=== PATIENT | male | born 1940 | race Caucasian/White ===

== ENCOUNTER 2016-12-21 13:45 | Inpatient (IN) | payer MEDICARE, OTHER ==
[2016-12-21 14:28] LABS: Hematocrit 14 % (42-52); Mean Corpuscular HGB Conc 32 g/dl (31-36); Mean Corpuscular Hemoglobin 31 pg (27-31); Mean Corpuscular Volume 96 fL (80-94); Mean Platelet Volume 8 um3 (7.4-10.4); Red Blood Count 1.43 10^6/ul (4.0-5.4); Red Cell Distribution Width 15 % (10.5-15); White Blood Count 12.5 10^3/ul (3.5-10.8)
[2016-12-21 14:30] LABS: Comments Flag Yes
[2016-12-21 14:36] LABS: Add Diff/Slide Review? Slide Review Added; Hemoglobin 4.4 g/dl (14.0-18.0)
[2016-12-21] MEDS ORDERED: NS 0.9% 1000 ML* 1,000 ML IV ONE (14:49)
[2016-12-21 15:08] LABS: TSH (Thyroid Stimulating Horm) 4.69 mcIU/mL (0.34-5.60)
[2016-12-21 15:09] LABS: Albumin 3.3 g/dL (3.2-5.2); BUN/Creatinine Ratio 24.1 (8-20); Calcium 8.2 mg/dL (8.6-10.3); EGFR African American 116.2 (>60); EGFR Non-African American 90.3 (>60); Globulin 2.1 g/dL (2-4); Potassium 4.3 mmol/L (3.5-5.0); Total Bilirubin 0.3 mg/dL (0.2-1.0); Total Protein 5.4 g/dL (6.4-8.9)
[2016-12-21 15:12] LABS: Troponin I 0.03 ng/mL (<0.04)
[2016-12-21] MEDS ORDERED: Pantoprazole IV* 40 MG IV ONE (16:20)
[2016-12-21 16:55] LABS: Magnesium 1.9 mg/dL (1.9-2.7)
[2016-12-21] MEDS: Pantoprazole IV* 80 MG in NS 0.9% 250 ML* 250 ML IVPB SCH (17:15)
--- NOTE | 2016-12-21 17:15 | CONS ---
GASTROENTEROLOGY CONSULT: DATE: 12/21/16 CONSULTING PHYSICIANS: Feliz Lr MD, ER; Lawrence Lala DO, [place]. * REASON FOR CONSULTATION: Hemoglobin 4.4 with history of dark stools for 4 days and then dark red blood yesterday HISTORY: This 76-year-old man with the history of GI bleeding from ulcers in winter 2014 came to the emergency room feeling weak and having seen blood in the stool over the last several days. His assists in the history, but it is still rather vague. Apparently, he has been in [place] all winter and had no trouble whatsoever and did not see any black stools at any time. At some point in 2015 he stopped taking pantoprazole. He arrived back here in [facility], 12/02/16, and was fine and had a routine 6-month check with Dr Lala on 12/11/16, at which time his hemoglobin was 12.3, MCV 95. His stools turned dark and he felt weak and dizzy and a followup hemoglobin, , was 8.9. There was no abdominal pain or dyspepsia or emesis. An expedited referral was made to our office and he has an appointment on 12/22/16 , but in the meantime, he felt weaker and the stool, rather than just being dark , overtly was dark red and he came to the emergency room fainting for the first time as he got into the car. Here his hemoglobin is 4.4, MCV 96, platelets 200. He was diagnosed with peptic ulcer disease, having presented with GI bleeding in [place], September 2014. He had been taking lots of ibuprofen at the time and he was sent home on pantoprazole. He did not resume taking ibuprofen and does not recognize any of the familiar NSAIDS. He does state he has arthritis, but has not taken anything for it, referencing that he did not want to have it affect his blood pressure. Dr. Lala restarted pantoprazole 3 days ago. 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 He presented to [place] and was helicoptered to [place] where after 2 days, they elected not to operate. PAST MEDICAL HISTORY: 1. Smoking - he quit 45 years ago. 2. Prostate cancer - status post surgery. 3. Aortic aneurysm dissection - managed medically (no aneurysm on a 08/02/13 CT abd done to w/u prostate cancer) His vascular consult was at [facility] after hel[facility]ter transfer Apr 2016 4. Hypertension. 5. Arthritis - consult with Dr. Gandara in March of 2016. 6. s/p Bilateral Knee Replacements MEDICATIONS: HCTZ 25, labetolol 200 mg (? schedule), ASA 81mg SOCIAL HISTORY: He is and a retired avionics systems engineer. He goes to [place] every winter. A health review from 10 years ago in our office listed a case of beer a week. Family History - father CAD REVIEW OF SYSTEMS: No history of GA, palpitations, syncope, CVA, neurologic deficits, seizures, hepatitis, jaundice, or recent falls or fractures. He has had colonoscopies at [place] by Dr Berkowitz with a tubular adenoma in 2006 and normal to cecum in 2014. PHYSICAL EXAMINATION: He is a slightly pale man lying back at 30 degrees in no distress. He is really in no respiratory distress and looks surprisingly fit. He even with his 's help is a very vague historian. Often a question results in the two of them discussing a series of different (though somewhat related) questions and ultimately they do not decide on the answer and the original question remains unanswered. Very circumscribed questions work best wtih repetition. HEENT exam shows no icterus. He has no adenopathy. His lungs are clear and heart sounds are regular. The abdomen is mildly rounded and without any scars or masses. Rectal: Deferred. Extremities show no edema. There is no deformity. Neurologic is nonfocal with no overt deficits. DIAGNOSTIC STUDIES/LAB DATA: Hemoglobin 4.4, MCV 96, platelets 200. IMPRESSION: This 76-year-old man with a history of abdominal aortic aneurysm dissection and prior peptic ulcer disease presents with an accelerated subacute bleed. It is notable he has not had any pain or vomited with this illness. Although he had black stools and then progressed to maroon stools, reassuringly has not had a bowel movement in the last 24 hours. Bleeding may have stopped, but clearly it has been significant. He is going to be admitted with 2 IVs, transfused, and be on a Protonix drip. Although the lack of NSAID exposure other than a baby aspirin appears secure after going through many different trade names, he and his are clearly not very medically informed and that still remains a possibility, especially as he says he has arthritis and has had a rheumatologic consult in the last year. Still some patients are very sensitive to even small doses of unopposed ASA. At the moment despite the hemoglobin of 4.4, he appears stable here in the ER and the first step is hemoglobin judaism and then EGD. [id number]/[facility] #: [id number] [facility]
--- NOTE | 2016-12-21 17:57 | HP ---
HISTORY AND PHYSICAL: DATE OF ADMISSION: 12/21/16 PRIMARY CARE PROVIDER: Dr. Lawrence Lala. ATTENDING PHYSICIAN: Dr. Omi Padilla*(dictated by Sherri Amado NP). CHIEF COMPLAINT: Fatigue, dizziness, and dark tarry stools for 4 days. HISTORY OF PRESENT ILLNESS: Mr. Duron is a 76-year-old male with past medical history significant for hypertension, prostate cancer, history of gastric ulcers, and aortic dissection, who presents to the emergency room with complaints of 4 days of dark tarry stools. The patient states that he had lab work drawn before a physical with his primary care provider on December 11. At that time, his hemoglobin and hematocrit were 12.3 and 38. The patient states that he saw his primary care provider on December 18, at which time he reported feeling fatigued, dizzy, and having 3 days of dark tarry stools. The patient reports that then his stools had more what appeared to be clumps of dark blood in them. The patient's primary care provider ordered an H and H and that was 8.9 and 27. At that time, the patient's hydrochlorothiazide was stopped as the patient felt that his blood pressures were lower than his normal, and the patient was restarted on pantoprazole 40 mg oral daily. The patient states he also had an episode of falling a few days prior due to his dizziness. At that time, he had no loss of consciousness. The patient reports that his last bowel movement was yesterday at 2 p.m. and it was a tarry color. The patient continued to not feel well and called his primary care provider, who recommended he present to the emergency room for further evaluation of his symptoms. According to the patient's , when they got in the car, he passed out for approximately 1 minute. The patient denies any fever, chills, chest pain, edema, abdominal pain. He reports recently having a cold, shortness of breath, diarrhea, and nausea. Based off of concern, the patient and his presented to the emergency room for further evaluation of his symptoms. While in the emergency room, the patient had labs that were significant for a hemoglobin of 4.4 and hematocrit of 14. He had a chemistry significant for sodium of 130 and chloride of 96. The patient also had an elevated lactic acid of 3.7. Hospitalists were asked to evaluate the patient for admission. The patient denies any recent NSAID use such as naproxen, ibuprofen, Motrin, or Aleve. PAST MEDICAL HISTORY: 1. Aortic dissection, medically treated. 2. Hypertension. 3. Prostate carcinoma. 4. Gastric ulcers, for which he was hospitalized 2 years ago with a GI bleed. PAST SURGICAL HISTORY: 1. Status post prostatectomy. 2. Status post left knee replacement. 3. Status post right total knee replacement. MEDICATIONS: Include: 1. Pantoprazole 40 mg oral daily. 2. Labetalol 200 mg oral 3 times daily. 3. Multivitamin 1 tablet oral daily. 4. Aspirin 81 mg oral daily. 5. Hydrochlorothiazide 25 mg oral daily, the patient stopped taking this on December 18 per direction from his primary care provider. FAMILY HISTORY: The patient's father had a history of coronary artery disease. The patient denies any family history of diabetes mellitus or cancer. SOCIAL HISTORY: The patient reports quitting smoking approximately 45 years ago. Prior to that, he smoked for 6 years, half a pack a day. The patient reports drinking alcohol 5 days a week and drinking 1 to 3 drinks during those days. The patient denies any recreational drug use. The patient is a retired facilities maintenance engineer. His , Madison Duron, will be his surrogate decision maker in the event he is unable to make decisions for himself. REVIEW OF SYSTEMS: I performed a 14-point review of systems. All the pertinent positives and negatives are mentioned in the history of present illness. The remaining review of systems are negative. PHYSICAL EXAMINATION GENERAL APPEARANCE: The patient is alert, pleasant, appears to be in no acute distress. VITAL SIGNS: Temperature 97.4, heart rate 70, respiratory rate 20, O2 sat 100% on room air, blood pressure 114/65. HEENT: Normocephalic, atraumatic. Pupils are equal and reactive to light. Extraocular movements are intact. RESPIRATORY: There is no accessory muscle use and the lungs are clear to auscultation bilaterally. CARDIOVASCULAR: Regular rate and rhythm. S1, S2 present. There are no murmurs , rubs, or gallops heard. ABDOMEN: Soft, nontender, nondistended. There are bowel sounds present x4. MUSCULOSKELETAL: There is no clubbing or cyanosis noted. The patient exhibits good strength in all extremities. SKIN: There are no rashes or abnormalities seen. NEUROLOGICAL: Cranial nerves II through XII are grossly intact. The patient is alert and oriented x3. PSYCHOLOGICAL: The patient is calm and cooperative. DIAGNOSTIC STUDIES/LABORATORY DATA: Sodium 130, potassium 4.3, chloride 96, CO2 25, BUN 20, creatinine 0.83, glucose 123, lactic acid 3.7. Troponin 0.03. TSH 4.69. White blood cell count 12.5, hemoglobin 4.4, hematocrit 14, platelet count 190. EKG shows a sinus rhythm with a rate of 65 and no acute signs of ischemia. There are no previous EKGs for comparison. IMPRESSION: Mr. Duron is a 76-year-old male with past medical history significant for hypertension, gastric ulcers, and GI bleed approximately 2 years ago, who presents to the emergency room with complaints of tarry stools for approximately 6 days. He will be admitted as an inpatient for suspected upper GI bleed. ASSESSMENT/PLAN: 1. Upper GI bleed: The patient will have 2 IVs. We will give him 3 units of packed red blood cells today. We will check orthostatic vital signs on him. We will trend his H and H q.6 hours. The patient had a GI consult. Dr. Hillman saw the patient in the emergency room. He will undergo an endoscopy procedure tomorrow as he ate lunch today. 2. Syncope: The patient will be monitored on telemetry. I suspect this is related to his anemia. 3. Hypertension: For now, we will hold the patient's home labetalol and resume accordingly. 4. Fluids, electrolytes, and nutrition: The patient will be on a clear liquid diet and n.p.o. after midnight. 5. Code status: Full code. 6. DVT prophylaxis: The patient is at high risk. We will hold on chemical DVT prophylaxis as it is contraindicated in the presence of a GI bleed. He will have SCDs and be encouraged to ambulate. 7. Disposition: Inpatient for GI bleed. TIME SPENT: The time for this admission was 60 minutes, greater than half of that was spent with the patient and his discussing medications, past medical history, and the events leading up to his arrival today and performing a physical examination. The case has been reviewed with the attending, Dr. Padilla, who agrees with the plan of care. SHERRI AMADO NP CC: Dr. Lawrence Lala* [id number]/[facility] #: [id number] [facility]
[2016-12-21] MEDS: NS 0.9% 1000 ML* 1,000 ML IV SCH (20:24)
[2016-12-21 20:38] LABS: Hematocrit 18 % (42-52)
[2016-12-21 20:50] LABS: Comments Flag Yes
[2016-12-21 20:51] LABS: Hemoglobin 6.1 g/dl (14.0-18.0)
[2016-12-21] MEDS ORDERED: Labetalol TAB* 200 MG PO SCH (21:00)
--- NOTE | 2016-12-21 22:46 | ED ---
Anjel Wilson Aidan, scribed for Arvind Lr MD on 12/21/16 at 1427 . Syncope/Near Syncope - HPI Summary HPI Summary: 76 y/o male presents to the ED with a complaint of an acute, moderate feeling of near-syncope that began just [facility] and has persisted since. According to the patient's , he actually passed out in the car while on the way to the ED. His near-syncopal sensation is aggravated by changing position. 4 days ago, he had episodes of hematochezia that have persisted intermittently. He had his last episode of hematochezia yesterday. Currently, he feels near-syncopal and confused. Last year, he had an aortic dissection on 04/18. The patients doctor suggested that he come in for an endoscopy. He currently takes labetalol and was recently placed on Pantoprazole. - History Of Current Complaint Chief Complaint: EDSyncope Time Seen by Provider: 12/21/16 13:54 Hx Obtained From: Patient, Family/Private Detective - Onset/Duration: Sudden Onset, Lasting Hours, Still Present Timing: Intermittent Episode Lasting Context: Witnessed - by Activity At Onset: At Rest - getting into the car/at rest Associated Head Trauma: No Aggravating Factor(s): Position Change - changing position aggravates feeling of near-syncope Alleviating Factor(s): Other - unknown Associated Signs And Symptoms: Other - hematochezia, near-syncope, syncope, confusion - Allergies/Home Medications Allergies/Adverse Reactions: Allergies Allergy/AdvReac Type Severity Reaction Status Date / Time No Known Allergies Allergy Verified 12/21/16 14:24 Home Medications: Home Medications Aspirin Low Dose CHEW TAB* [Aspirin Low Dose TAB*] 81 mg PO DAILY 12/21/16 [ History Confirmed 12/21/16] Labetalol HCl [Labetalol HCl] 200 mg PO TID 12/21/16 [History Confirmed 12/21/16 ] Multiple Vitamin [Multivitamins] 1 cap PO DAILY 12/21/16 [History Confirmed ] Pantoprazole Sodium [Pantoprazole Sodium] 40 mg PO DAILY 12/21/16 [History Confirmed 12/21/16] PMH/Surg Hx/FS Hx/Imm Hx Cardiovascular History: Reports: Hx Hypertension History: Reports: Other Problems/Disorders - prostate ca Musculoskeletal History: Reports: Other Musculoskeletal History - L knee and R hip replacements, osteo-arthritis Neurological History: Reports: Other Neuro Impairments/Disorders - tingling hands - Cancer History Cancer Type, Location and Year: prostate - Surgical History Surgery Procedure, Year, and Place: L knee and R hip replacement, prostate biopsy Infectious Disease History: Denies: Traveled Outside the [place] in Last 30 Days - Family History Known Family History: Positive: Cardiac Disease - Social History Occupation: Retired Lives: With Family Alcohol Use: Occasionally Substance Use Type: Reports: None Smoking Status (MU): Never Smoked Tobacco Review of Systems Constitutional: Negative Eyes: Negative ENT: Negative Cardiovascular: Negative Respiratory: Negative Positive: Other - hematochezia. Negative: Abdominal Pain, Vomiting, Diarrhea, Nausea Genitourinary: Negative Musculoskeletal: Negative Skin: Negative Neurological: Other - near-syncope Positive: Syncope. Negative: Headache, Weakness, Paresthesia, Numbness, Slurred Speech Psychological: Other - confusion All Other Systems Reviewed And Are Negative: Yes Physical Exam Triage Information Reviewed: Yes Vital Signs On Initial Exam: Initial Vitals Temp Pulse Resp BP Pulse Ox 97.4 F 69 16 119/57 100 12/21/16 13:46 12/21/16 13:46 12/21/16 13:46 12/21/16 13:46 12/21/16 13:46 Vital Signs Reviewed: Yes Appearance: Positive: Well-Appearing, No Pain Distress Skin: Positive: Warm, Skin Color Reflects Adequate Perfusion, Dry Head/Face: Positive: Normal Head/Face Inspection Eyes: Positive: Other: - pale conjunctiva ENT: Positive: Normal ENT inspection Neck: Positive: Supple, Nontender Respiratory/Lung Sounds: Positive: Clear to Auscultation, Breath Sounds Present Cardiovascular: Positive: RRR, Other - the patient was not tachycardic Abdomen Description: Positive: Nontender, Soft Bowel Sounds: Positive: Present Musculoskeletal: Positive: Normal Neurological: Positive: Normal Psychiatric: Positive: Affect/Mood Appropriate Diagnostics - Vital Signs Vital Signs Temp Pulse Resp BP Pulse Ox 12/21/16 13:46 97.4 F 69 16 119/57 100 - Laboratory Lab Results: Lab Results 12/21/16 12/21/16 12/21/16 Range/Units 14:14 14:14 14:14 WBC 12.5 H (3.5-10.8) 10^3/ul RBC 1.43 L (4.0-5.4) 10^6/ul Hgb 4.4 L* (14.0-18.0) g/dl Hct 14 L (42-52) % MCV 96 H (80-94) fL MCH 31 (27-31) pg MCHC 32 (31-36) g/dl RDW 15 (10.5-15) % Plt Count 190 (150-450) 10^3/ul MPV 8 (7.4-10.4) um3 Neut % (Auto) 74.1 (38-83) % Lymph % (Auto) 11.0 L (25-47) % Cedar % (Auto) 14.0 H (1-9) % Eos % (Auto) 0.4 (0-6) % Baso % (Auto) 0.5 (0-2) % Absolute Neuts (auto) 9.2 H (1.5-7.7) 10^3/ul Absolute Lymphs (auto) 1.4 (1.0-4.8) 10^3/ul Absolute Monos (auto) 1.7 H (0-0.8) 10^3/ul Absolute Eos (auto) 0 (0-0.6) 10^3/ul Absolute Basos (auto) 0.1 (0-0.2) 10^3/ul Absolute Nucleated RBC 0.04 10^3/ul Nucleated RBC % 0.3 Sodium 130 L (133-145) mmol/L Potassium 4.3 (3.5-5.0) mmol/L Chloride 96 L (101-111) mmol/L Carbon Dioxide 25 (22-32) mmol/L Anion Gap 9 (2-11) mmol/L BUN 20 (6-24) mg/dL Creatinine 0.83 (0.67-1.17) mg/dL Est GFR ( Amer) 116.2 (>60) Est GFR (Non-Af Amer) 90.3 (>60) BUN/Creatinine Ratio 24.1 H (8-20) Glucose 123 H (70-100) mg/dL Lactic Acid 3.7 H* (0.5-2.0) mmol/L Calcium 8.2 L (8.6-10.3) mg/dL Magnesium 1.9 (1.9-2.7) mg/dL Total Bilirubin 0.30 (0.2-1.0) mg/dL AST 17 (13-39) U/L ALT 14 (7-52) U/L Alkaline Phosphatase 38 (34-104) U/L Troponin I 0.03 (<0.04) ng/mL Total Protein 5.4 L (6.4-8.9) g/dL Albumin 3.3 (3.2-5.2) g/dL Globulin 2.1 (2-4) g/dL Albumin/Globulin Ratio 1.6 (1-3) TSH 4.69 (0.34-5.60) mcIU/mL Blood Type Antibody Screen Crossmatch 12/21/16 Range/Units 14:14 WBC (3.5-10.8) 10^3/ul RBC (4.0-5.4) 10^6/ul Hgb (14.0-18.0) g/dl Hct (42-52) % MCV (80-94) fL MCH (27-31) pg MCHC (31-36) g/dl RDW (10.5-15) % Plt Count (150-450) 10^3/ul MPV (7.4-10.4) um3 Neut % (Auto) (38-83) % Lymph % (Auto) (25-47) % Cedar % (Auto) (1-9) % Eos % (Auto) (0-6) % Baso % (Auto) (0-2) % Absolute Neuts (auto) (1.5-7.7) 10^3/ul Absolute Lymphs (auto) (1.0-4.8) 10^3/ul Absolute Monos (auto) (0-0.8) 10^3/ul Absolute Eos (auto) (0-0.6) 10^3/ul Absolute Basos (auto) (0-0.2) 10^3/ul Absolute Nucleated RBC 10^3/ul Nucleated RBC % Sodium (133-145) mmol/L Potassium (3.5-5.0) mmol/L Chloride (101-111) mmol/L Carbon Dioxide (22-32) mmol/L Anion Gap (2-11) mmol/L BUN (6-24) mg/dL Creatinine (0.67-1.17) mg/dL Est GFR ( Amer) (>60) Est GFR (Non-Af Amer) (>60) BUN/Creatinine Ratio (8-20) Glucose (70-100) mg/dL Lactic Acid (0.5-2.0) mmol/L Calcium (8.6-10.3) mg/dL Magnesium (1.9-2.7) mg/dL Total Bilirubin (0.2-1.0) mg/dL AST (13-39) U/L ALT (7-52) U/L Alkaline Phosphatase (34-104) U/L Troponin I (<0.04) ng/mL Total Protein (6.4-8.9) g/dL Albumin (3.2-5.2) g/dL Globulin (2-4) g/dL Albumin/Globulin Ratio (1-3) TSH (0.34-5.60) mcIU/mL Blood Type O Negative Antibody Screen Negative Crossmatch See Detail Result Diagrams: 12/21/16 20:18 12/21/16 14:14 Lab Statement: Any lab studies that have been ordered have been reviewed, and results considered in the medical decision making process. - EKG EKG 1406 Cardiac Rate: NL - 65 BPM EKG Rhythm: Sinus Rhythm EKG Interpretation: NORMAL SINUS RHYTHM Course/Dx Course Of Treatment: This is a 76 y/o male presenting with near-syncope. He was not tachycardic on examination and his EKG showed normal sinus rhythm with 65 BPM. The following were abnormal lab results: WBC was 12.5, RBC was 1.43, Hgb was 4.4, HCT was 14, MCV was 96, lymph % was 11, mono % was 14, absolute neuts were 9.2, and absolute Monos were 1.7. Additionally, the patient's lactic acid was 3.7. Troponin was 0.03. Sodium was 130 and chloride was 96. BUN/Creatine ratio was 24.1, glucose was 123, lactic acid was 3.7, calcium was 8.2, and total protein was 5.4. The patient will be admitted for further evaluation. An aortoesophageal fistula is unfortunately in the differential. He was treated aggresively with fluids and blood and two large bore lines. - Diagnoses Provider Diagnoses: GI bleed - Physician Notifications Discussed Care Of Patient With: Dr. Hillman (GI), Dr. Padilla (Hospitalist) Time Discussed With Above Provider: 14:43 - Dr. Lr discussed the patient's hematochezia with GI specialist Dr. Hillman - Critical Care Time Critical Care Time: 30-74 min Discharge - Discharge Plan Condition: Stable Disposition: ADMITTED TO [facility] documentation as recorded by the Anjel burt Aidan accurately reflects the service I personally performed and the decisions made by me, Arvind Lr MD.
[2016-12-22 01:09] LABS: Comments Flag Yes; Hematocrit 18 % (42-52)
[2016-12-22 01:12] LABS: Hemoglobin 6.1 g/dl (14.0-18.0)
[2016-12-22] MEDS: Pantoprazole IV* 80 MG in NS 0.9% 250 ML* 250 ML IVPB SCH ×2 (03:10→18:26)
[2016-12-22] MEDS: NS 0.9% 1000 ML* 1,000 ML IV SCH (06:12)
[2016-12-22] MEDS ORDERED: NS 0.9% 1000 ML* 1,000 ML IV SCH (08:41)
--- NOTE | 2016-12-22 08:42 | PN ---
Subjective Date of Service: 12/22/16 Interval History: Patient seen this morning. Denies CP, SOB, dizziness/light-headedness. No further bleeding overnight. Asking when he is going to have his procedure. Family History: Unchanged from Admission Social History: Unchanged from Admission Past Medical History: Unchanged from Admission Objective Active Medications: Pantoprazole Sodium 80 mg/ (Sodium Chloride) 250 mls @ 25 mls/hr IVPB Q10H [facility] Last Admin: 12/22/16 03:10 Dose: 25 mls/hr Sodium Chloride (Ns 0.9% 1000 Ml*) 1,000 mls @ 125 mls/hr IV PER RATE [facility] Last Admin: 12/22/16 06:12 Dose: 125 mls/hr Vital Signs 12/21/16 12/21/16 12/21/16 16:39 16:42 16:45 Temperature 97.7 F Pulse Rate 69 66 68 Respiratory 21 17 18 Rate Blood Pressure 119/66 114/63 (mmHg) O2 Sat by Pulse 100 100 100 Oximetry 12/21/16 12/22/16 12/22/16 23:50 00:04 04:20 Temperature 98.5 F 98.3 F Pulse Rate 86 85 65 Respiratory 16 16 Rate Blood Pressure 117/65 128/54 112/52 (mmHg) O2 Sat by Pulse 93 96 Oximetry Oxygen Devices in Use Now: None Appearance: Elderly, M, laying in bed in NAD Eyes: No Scleral Icterus Ears/Nose/Mouth/Throat: - - Dry MM Neck: NL Appearance and Movements; NL JVP Respiratory: Symmetrical Chest Expansion and Respiratory Effort, Clear to Auscultation Cardiovascular: NL Sounds; No Murmurs; No JVD, RRR Abdominal: NL Sounds; No Tenderness; No Distention Lymphatic: No Cervical Adenopathy Extremities: No Edema Skin: No Rash or Ulcers Neurological: Alert and Oriented x 3 Result Diagrams: 12/22/16 00:45 12/21/16 14:14 Additional Lab and Data: Lab Results 12/21/16 12/21/16 12/21/16 Range/Units 14:14 14:14 14:14 WBC 12.5 H (3.5-10.8) 10^3/ul RBC 1.43 L (4.0-5.4) 10^6/ul Hgb 4.4 L* (14.0-18.0) g/dl Hct 14 L (42-52) % MCV 96 H (80-94) fL MCH 31 (27-31) pg MCHC 32 (31-36) g/dl RDW 15 (10.5-15) % Plt Count 190 (150-450) 10^3/ul MPV 8 (7.4-10.4) um3 Neut % (Auto) 74.1 (38-83) % Lymph % (Auto) 11.0 L (25-47) % [place] % (Auto) 14.0 H (1-9) % Eos % (Auto) 0.4 (0-6) % Baso % (Auto) 0.5 (0-2) % Absolute Neuts (auto) 9.2 H (1.5-7.7) 10^3/ul Absolute Lymphs (auto) 1.4 (1.0-4.8) 10^3/ul Absolute Monos (auto) 1.7 H (0-0.8) 10^3/ul Absolute Eos (auto) 0 (0-0.6) 10^3/ul Absolute Basos (auto) 0.1 (0-0.2) 10^3/ul Absolute Nucleated RBC 0.04 10^3/ul Nucleated RBC % 0.3 Sodium 130 L (133-145) mmol/L Potassium 4.3 (3.5-5.0) mmol/L Chloride 96 L (101-111) mmol/L Carbon Dioxide 25 (22-32) mmol/L Anion Gap 9 (2-11) mmol/L BUN 20 (6-24) mg/dL Creatinine 0.83 (0.67-1.17) mg/dL Est GFR ( Amer) 116.2 (>60) Est GFR (Non-Af Amer) 90.3 (>60) BUN/Creatinine Ratio 24.1 H (8-20) Glucose 123 H (70-100) mg/dL Lactic Acid 3.7 H* (0.5-2.0) mmol/L Calcium 8.2 L (8.6-10.3) mg/dL Magnesium 1.9 (1.9-2.7) mg/dL Total Bilirubin 0.30 (0.2-1.0) mg/dL AST 17 (13-39) U/L ALT 14 (7-52) U/L Alkaline Phosphatase 38 (34-104) U/L Troponin I 0.03 (<0.04) ng/mL Total Protein 5.4 L (6.4-8.9) g/dL Albumin 3.3 (3.2-5.2) g/dL Globulin 2.1 (2-4) g/dL Albumin/Globulin Ratio 1.6 (1-3) TSH 4.69 (0.34-5.60) mcIU/mL Blood Type Antibody Screen Crossmatch 12/21/16 Range/Units 14:14 WBC (3.5-10.8) 10^3/ul RBC (4.0-5.4) 10^6/ul Hgb (14.0-18.0) g/dl Hct (42-52) % MCV (80-94) fL MCH (27-31) pg MCHC (31-36) g/dl RDW (10.5-15) % Plt Count (150-450) 10^3/ul MPV (7.4-10.4) um3 Neut % (Auto) (38-83) % Lymph % (Auto) (25-47) % [place] % (Auto) (1-9) % Eos % (Auto) (0-6) % Baso % (Auto) (0-2) % Absolute Neuts (auto) (1.5-7.7) 10^3/ul Absolute Lymphs (auto) (1.0-4.8) 10^3/ul Absolute Monos (auto) (0-0.8) 10^3/ul Absolute Eos (auto) (0-0.6) 10^3/ul Absolute Basos (auto) (0-0.2) 10^3/ul Absolute Nucleated RBC 10^3/ul Nucleated RBC % Sodium (133-145) mmol/L Potassium (3.5-5.0) mmol/L Chloride (101-111) mmol/L Carbon Dioxide (22-32) mmol/L Anion Gap (2-11) mmol/L BUN (6-24) mg/dL Creatinine (0.67-1.17) mg/dL Est GFR ( Amer) (>60) Est GFR (Non-Af Amer) (>60) BUN/Creatinine Ratio (8-20) Glucose (70-100) mg/dL Lactic Acid (0.5-2.0) mmol/L Calcium (8.6-10.3) mg/dL Magnesium (1.9-2.7) mg/dL Total Bilirubin (0.2-1.0) mg/dL AST (13-39) U/L ALT (7-52) U/L Alkaline Phosphatase (34-104) U/L Troponin I (<0.04) ng/mL Total Protein (6.4-8.9) g/dL Albumin (3.2-5.2) g/dL Globulin (2-4) g/dL Albumin/Globulin Ratio (1-3) TSH (0.34-5.60) mcIU/mL Blood Type O Negative Antibody Screen Negative Crossmatch See Detail Assess/Plan/Problems-Billing Assessment: Acute blood loss anemia 2/2 likely UGIB, syncope in a 76 yo M with hx of gastric ulcers, HTN, aortic dissection, prostate cancer - Patient Problems (1) Acute blood loss anemia Current Visit: Yes Comment: 2/2 GIB. Hb remains low (6.1) despite 3 units of PRBC. Will transfuse an additional 2 units now. Patient remains stable. Appreciate GI assistance, Dr. Prater to evaluate the patient re:endoscopy today. Continue protonix gtt. Continue IVF. (2) Syncope Current Visit: Yes Comment: Likely due to profound anemia, no events on tele. (3) HTN (hypertension) Current Visit: Yes Comment: Hold home Labetalol. Was taken of HCTZ prior to admission. (4) DVT prophylaxis Current Visit: Yes Comment: SCDs Status and Disposition: Inpatient for acute blood loss anemia
[2016-12-22 08:48] LABS: Hematocrit 19 % (42-52)
[2016-12-22 09:23] LABS: Comments Flag Yes
[2016-12-22 09:25] LABS: Hemoglobin 6.3 g/dl (14.0-18.0)
[2016-12-22] MEDS ORDERED: Acetaminophen TAB* 325 MG PO PRN (09:25)
[2016-12-22 12:41] LABS: Hematocrit 22 % (42-52); Hemoglobin 7.5 g/dl (14.0-18.0)
[2016-12-22] MEDS ORDERED: Midazolam* 1 MG/ML 10 ML VIAL (10 MG) ONE (14:29)
[2016-12-22] MEDS ORDERED: Meperidine SYRINGE* 50 MG/ML ONE (14:29)
--- NOTE | 2016-12-22 16:49 | PRO ---
DATE OF PROCEDURE: 12/22/2016. PROCEDURE PERFORMED: EGD. INDICATION: Anemia, melena. REFERRING PHYSICIAN: Dr. Lala. MEDICATIONS GIVEN: 25 mg IV Demerol and 3 mg IV Versed. PROCEDURE: After the EGD procedure, including the risks, benefits, and alternatives, not limited to perforation, surgery, and/or were explained to Mr. Duron, written consent was then obtained. IV medication was given and a bite-block was placed between the teeth. An Olympus pediatric gastroscope was then inserted into the patient's mouth, advanced down the esophagus, into the stomach, and into the distal duodenum. In the esophagus at the GE junction, the Z-line was intact. No erosive esophagitis, stricture or ring was seen. The scope was advanced through a widely patent GE junction into the body of the stomach. Retroflex view is unremarkable. Forward view also was unremarkable. No ulcers were seen. The scope was advanced through a widely patent pylorus, into the duodenal bulb, and into the distal duodenum, both of which were unremarkable. No ulcers were seen. The scope was then withdrawn from the patient. He tolerated the procedure well and was returned to the recovery room in stable condition. IMPRESSION: 1. Complete upper endoscopy into the distal duodenum with biopsy. 2. H. pylori biopsy. 3. Normal upper endoscopy. No etiology was seen for his maroon stools or melena. The patient did have a normal colonoscopy just two years ago. I think at this point he needs an outpatient capsule endoscopy with Dr. Hillman. CC: Dr. Lala; Dr. Hillman * [id number]/[facility] #: [id number] [facility]
[2016-12-22 17:35] LABS: Hematocrit 25 % (42-52); Hemoglobin 8.4 g/dl (14.0-18.0)
[2016-12-22 18:35] LABS: Urine Bilirubin Negative (Negative); Urine Glucose Negative (Negative); Urine Nitrite Negative (Negative)
[2016-12-23 00:59] LABS: Hematocrit 24 % (42-52)
[2016-12-23 06:22] LABS: Hematocrit 25 % (42-52); Hemoglobin 8.5 g/dl (14.0-18.0); Mean Corpuscular HGB Conc 34 g/dl (31-36); Mean Corpuscular Hemoglobin 31 pg (27-31); Mean Corpuscular Volume 91 fL (80-94); Mean Platelet Volume 8 um3 (7.4-10.4); Red Blood Count 2.74 10^6/ul (4.0-5.4); Red Cell Distribution Width 15 % (10.5-15); White Blood Count 9.8 10^3/ul (3.5-10.8)
[2016-12-23 06:35] LABS: BUN/Creatinine Ratio 14.8 (8-20); Calcium 7.8 mg/dL (8.6-10.3); EGFR African American 165.7 (>60); EGFR Non-African American 128.9 (>60); Potassium 3.6 mmol/L (3.5-5.0)
[2016-12-23] MEDS: CMCS: Pantoprazole TAB (NF) 40 MG TAB PO SCH (07:11)
--- NOTE | 2016-12-23 09:59 | PN ---
Subjective Date of Service: 12/23/16 Interval History: Seen with at bedside No blood seen since yesterday Has no pain Notes what he thinks is post nasal drip with associated cough which has been present for years and worse in spring tolerating diet Family History: Unchanged from Admission Social History: Unchanged from Admission Past Medical History: Unchanged from Admission Objective Active Medications: Acetaminophen (Tylenol Tab*) 650 mg PO Q4H PRN PRN Reason: Pain/fever/prbc Last Admin: 12/22/16 10:06 Dose: 650 mg Labetalol HCl (Trandate Tab*) 100 mg PO TID [facility] Pantoprazole Sodium (Protonix Tab (Nf)) 40 mg PO DAILY@0730 [facility] Last Admin: 12/23/16 07:11 Dose: 40 mg Vital Signs 12/22/16 12/22/16 12/22/16 11:25 15:30 15:48 Temperature 99.6 F 98.1 F 98.3 F Pulse Rate 60 60 61 Respiratory 16 24 16 Rate Blood Pressure 118/62 125/72 119/69 (mmHg) O2 Sat by Pulse 95 96 99 Oximetry 12/22/16 12/22/16 12/22/16 15:49 15:50 15:55 Temperature Pulse Rate 115 56 100 Respiratory Rate Blood Pressure 122/65 (mmHg) O2 Sat by Pulse 85 85 Oximetry 12/22/16 12/22/16 12/22/16 15:57 15:59 16:00 Temperature Pulse Rate 143 49 68 Respiratory Rate Blood Pressure 124/72 (mmHg) O2 Sat by Pulse 93 84 Oximetry 12/22/16 12/22/16 12/22/16 16:10 19:46 20:00 Temperature 98.1 F Pulse Rate 65 80 Respiratory 16 16 Rate Blood Pressure 122/65 137/65 (mmHg) O2 Sat by Pulse 98 90 Oximetry 12/22/16 12/23/16 12/23/16 23:59 03:49 06:38 Temperature 98.1 F 98.3 F Pulse Rate 65 59 Respiratory 16 16 18 Rate Blood Pressure 124/69 132/75 (mmHg) O2 Sat by Pulse 96 97 Oximetry 12/23/16 07:40 Temperature 97.8 F Pulse Rate 62 Respiratory 16 Rate Blood Pressure 143/92 (mmHg) O2 Sat by Pulse 95 Oximetry Oxygen Devices in Use Now: None Appearance: sitting in chair, NAD Eyes: No Scleral Icterus, PERRLA Ears/Nose/Mouth/Throat: Clear Oropharnyx, Mucous Membranes Moist Neck: NL Appearance and Movements; NL JVP, Trachea Midline Respiratory: Symmetrical Chest Expansion and Respiratory Effort, Clear to Auscultation Cardiovascular: RRR Abdominal: NL Sounds; No Tenderness; No Distention, No Hepatosplenomegaly Lymphatic: No Cervical Adenopathy Extremities: No Edema, No Clubbing, Cyanosis Neurological: Alert and Oriented x 3 Result Diagrams: 12/23/16 06:09 12/23/16 06:09 Additional Lab and Data: Lab Results 12/21/16 12/21/16 12/21/16 Range/Units 14:14 14:14 14:14 WBC 12.5 H (3.5-10.8) 10^3/ul RBC 1.43 L (4.0-5.4) 10^6/ul Hgb 4.4 L* (14.0-18.0) g/dl Hct 14 L (42-52) % MCV 96 H (80-94) fL MCH 31 (27-31) pg MCHC 32 (31-36) g/dl RDW 15 (10.5-15) % Plt Count 190 (150-450) 10^3/ul MPV 8 (7.4-10.4) um3 Neut % (Auto) 74.1 (38-83) % Lymph % (Auto) 11.0 L (25-47) % [place] % (Auto) 14.0 H (1-9) % Eos % (Auto) 0.4 (0-6) % Baso % (Auto) 0.5 (0-2) % Absolute Neuts (auto) 9.2 H (1.5-7.7) 10^3/ul Absolute Lymphs (auto) 1.4 (1.0-4.8) 10^3/ul Absolute Monos (auto) 1.7 H (0-0.8) 10^3/ul Absolute Eos (auto) 0 (0-0.6) 10^3/ul Absolute Basos (auto) 0.1 (0-0.2) 10^3/ul Absolute Nucleated RBC 0.04 10^3/ul Nucleated RBC % 0.3 Sodium 130 L (133-145) mmol/L Potassium 4.3 (3.5-5.0) mmol/L Chloride 96 L (101-111) mmol/L Carbon Dioxide 25 (22-32) mmol/L Anion Gap 9 (2-11) mmol/L BUN 20 (6-24) mg/dL Creatinine 0.83 (0.67-1.17) mg/dL Est GFR ( Amer) 116.2 (>60) Est GFR (Non-Af Amer) 90.3 (>60) BUN/Creatinine Ratio 24.1 H (8-20) Glucose 123 H (70-100) mg/dL Lactic Acid 3.7 H* (0.5-2.0) mmol/L Calcium 8.2 L (8.6-10.3) mg/dL Magnesium 1.9 (1.9-2.7) mg/dL Total Bilirubin 0.30 (0.2-1.0) mg/dL AST 17 (13-39) U/L ALT 14 (7-52) U/L Alkaline Phosphatase 38 (34-104) U/L Troponin I 0.03 (<0.04) ng/mL Total Protein 5.4 L (6.4-8.9) g/dL Albumin 3.3 (3.2-5.2) g/dL Globulin 2.1 (2-4) g/dL Albumin/Globulin Ratio 1.6 (1-3) TSH 4.69 (0.34-5.60) mcIU/mL Blood Type Antibody Screen Crossmatch 12/21/16 Range/Units 14:14 WBC (3.5-10.8) 10^3/ul RBC (4.0-5.4) 10^6/ul Hgb (14.0-18.0) g/dl Hct (42-52) % MCV (80-94) fL MCH (27-31) pg MCHC (31-36) g/dl RDW (10.5-15) % Plt Count (150-450) 10^3/ul MPV (7.4-10.4) um3 Neut % (Auto) (38-83) % Lymph % (Auto) (25-47) % [place] % (Auto) (1-9) % Eos % (Auto) (0-6) % Baso % (Auto) (0-2) % Absolute Neuts (auto) (1.5-7.7) 10^3/ul Absolute Lymphs (auto) (1.0-4.8) 10^3/ul Absolute Monos (auto) (0-0.8) 10^3/ul Absolute Eos (auto) (0-0.6) 10^3/ul Absolute Basos (auto) (0-0.2) 10^3/ul Absolute Nucleated RBC 10^3/ul Nucleated RBC % Sodium (133-145) mmol/L Potassium (3.5-5.0) mmol/L Chloride (101-111) mmol/L Carbon Dioxide (22-32) mmol/L Anion Gap (2-11) mmol/L BUN (6-24) mg/dL Creatinine (0.67-1.17) mg/dL Est GFR ( Amer) (>60) Est GFR (Non-Af Amer) (>60) BUN/Creatinine Ratio (8-20) Glucose (70-100) mg/dL Lactic Acid (0.5-2.0) mmol/L Calcium (8.6-10.3) mg/dL Magnesium (1.9-2.7) mg/dL Total Bilirubin (0.2-1.0) mg/dL AST (13-39) U/L ALT (7-52) U/L Alkaline Phosphatase (34-104) U/L Troponin I (<0.04) ng/mL Total Protein (6.4-8.9) g/dL Albumin (3.2-5.2) g/dL Globulin (2-4) g/dL Albumin/Globulin Ratio (1-3) TSH (0.34-5.60) mcIU/mL Blood Type O Negative Antibody Screen Negative Crossmatch See Detail Microbiology and Other Data: Microbiology 12/22/16 15:06 CLOtest - Final Gastric Antrum Assess/Plan/Problems-Billing Assessment: 76 yo M with hx of duodenal ulcers, HTN, aortic dissection, prostate cancer p/w syncope 2/2 acute blood loss anemia 2/2 suspected UGIB with negative EGD 12/22 - Patient Problems (1) Acute blood loss anemia Comment: 2/2 GIB. 5 units PRBC this stay with last 2 units 12/22 Endoscopy without source. Continue protonix gtt. Continue IVF. Start iron Monitor today (2) HTN (hypertension) Comment: Was taken of HCTZ prior to admission. Restart labetalol at lower dose 100mg TID (home dose is 200mg TID) (3) Syncope Comment: Likely due to profound anemia, no events on tele. (4) DVT prophylaxis Comment: SCDs Status and Disposition: Inpatient for acute blood loss anemia
[2016-12-23] MEDS: Labetalol TAB* 100 MG PO SCH ×2 (13:05→21:54)
[2016-12-23] MEDS: Ferrous Sulfate TAB* 325 MG PO SCH (21:54)
[2016-12-24 05:35] LABS: Hematocrit 24 % (42-52); Hemoglobin 8.1 g/dl (14.0-18.0)
[2016-12-24] MEDS: Ferrous Sulfate TAB* 325 MG PO SCH (07:22)
[2016-12-24] MEDS: CMCS: Pantoprazole TAB (NF) 40 MG TAB PO SCH (07:22)
[2016-12-24] MEDS: Labetalol TAB* 100 MG PO SCH (08:21)
[2016-12-24 08:22] VITALS: BP 105/58
--- NOTE | 2016-12-25 01:22 | DS ---
DISCHARGE SUMMARY: DATE OF ADMISSION: 12/21/16 DATE OF DISCHARGE: 12/24/16 PRIMARY DIAGNOSIS: Upper GI hemorrhage. SECONDARY DIAGNOSES: Include: 1. Blood loss anemia. 2. Syncope. 3. Hypertension. 4. History of aortic dissection. 5. History of prostate cancer. 6. History of duodenal ulcers. MEDICATIONS ON DISCHARGE: 1. Multivitamin 1 cap daily. 2. Pantoprazole 40 mg daily. 3. Labetalol 100 mg 3 times daily, please note decreased dose. 4. Ferrous sulfate 325 mg twice daily. Please note the discontinuation of aspirin 81 mg daily. PERTINENT LABORATORY DATA: Hemoglobin on presentation 4.4, on discharge 8.1. Please note the patient received 5 units of packed red blood cells during the course of his hospital stay. PROCEDURES PERFORMED DURING HOSPITAL STAY: EGD performed by Dr. Prater. Impression: Complete upper endoscopy into the distal duodenum with biopsies. Normal upper endoscopy. No etiology was seen for etiology of maroon stools or melena. Note, the patient had a normal colonoscopy 2 years prior. HISTORY OF PRESENT ILLNESS AND HOSPITAL COURSE: This is a 76-year-old male with a past medical history as outlined in the history of present illness on the day of admission including history of multiple duodenal ulcers as well as aortic dissection, did not need surgical intervention, presented to the hospital with multiple days of dark tarry stools, found with hemoglobin of 4.4. He underwent upper endoscopy with results as indicated above without elucidation of the etiology for his upper GI bleed. He received a total of 5 units of packed red blood cells with appropriate increase in his hemoglobin and hematocrit to 8.1/24 on the day of discharge. His labetalol was restarted during the course of the hospital stay, but at a lower dose, decreasing 200 to 100 three times daily. He was started on ferrous sulfate to assist in the normalization of his anemia after high volume blood loss. His aspirin is discontinued at this time in the setting of recent GI hemorrhage, can be considered to be restarted at a later date when stable. I discussed care with Dr. Hillman's office who is arranging a followup appointment for the patient next week. The plan is for him to undergo a capsule endoscopy. I have also made a followup appointment with Dr. Lawrence Lala. The patient to be seen after discharge. Discharge instructions were discussed at length with the patient including avoidance of all nonsteroidal anti-inflammatories and the use of Tylenol only for pain or fever relief. At followup, please; 1. Consider hemoglobin and hematocrit to monitor for continued stability. 2. Consider restarting aspirin when deemed stable. 3. Ensure that the patient follows up with Gastroenterology for capsule endoscopy as indicated above. Reasons to return to the hospital including, but not limited to recurrent or worsening symptoms including bleeding from any source, dark black stool, chest pain, shortness of breath, nausea, vomiting, lightheadedness, loss of consciousness or near loss of consciousness, inability to obtain or tolerate medications were discussed with the patient. He acknowledged understanding. TIME SPENT: Greater than 45 minutes were spent on the discharge of the patient of which greater than half was spent [id number] with the patient. CC: Dr. Lala; Dr. Hillman* [id number]/[facility] #: [id number] MTDD
== END 2016-12-24 09:15 | disposition home or self-care (01) | DRG 193 ==
LOC: ED 13:45 → MEDTELE 15:40
PROVIDERS: ADMIT Hospitalist; ATTEND Internal Medicine
DX: J18.9 Pneumonia, unspecified organism (principal); J96.01 Acute respiratory failure with hypoxia; M62.82 Rhabdomyolysis; E11.9 Type 2 diabetes mellitus without complications; K21.9 Gastro-esophageal reflux disease without esophagitis; S82.144D Nondisplaced bicondylar fracture of right tibia, subsequent encounter for closed fracture with routine healing; K75.81 Nonalcoholic steatohepatitis (NASH); K74.60 Unspecified cirrhosis of liver; I10 Essential (primary) hypertension; E78.5 Hyperlipidemia, unspecified; Z79.1 Long term (current) use of non-steroidal anti-inflammatories (NSAID); X58.XXXD Exposure to other specified factors, subsequent encounter; Z79.899 Other long term (current) drug therapy; Z88.0 Allergy status to penicillin; Z88.8 Allergy status to other drugs, medicaments and biological substances; Z88.5 Allergy status to narcotic agent; Z79.4 Long term (current) use of insulin; Z91.040 Latex allergy status
CPT/HCPCS: 36415; 80048; 80053; 81003; 83605; 83735; 84443; 84484; 85014; 85018; 85025; 85027; 86850; 86900; 86901; 86922; 87077; 93005; A9270-GY; J2250; P9040

== ENCOUNTER 2018-02-05 06:41 | Inpatient (IN) | payer MEDICARE ==
--- NOTE | 2018-01-25 15:05 | HP ---
HISTORY AND PHYSICAL: DATE OF SURGERY: 02/05/18 DATE OF OFFICE VISIT: 01/25/18 SURGEON: Hannah Encarnacion MD.* (DICTATED BY AYUSH STUART) PROCEDURE: Left total hip arthroplasty. CHIEF COMPLAINT: Left hip pain. HISTORY OF PRESENT ILLNESS: Mr. Duron is a 77-year-old gentleman with complaints of left hip pain secondary to endstage osteoarthritis. He has failed conservative management and elected to proceed with a left total hip arthroplasty, which was scheduled on 02/05/18. PAST MEDICAL HISTORY: Prostate cancer, thoracic aortic dissection, hypertension , GERD, high cholesterol and bleeding ulcers. PAST SURGICAL HISTORY: Aortic dissection repair, right total hip arthroplasty, left total knee arthroplasty and left carpal tunnel release. CURRENT MEDICATIONS: 1. Aspirin 81 mg daily. 2. Glucosamine/chondroitin. 3. Iron 325 daily. 4. Pantoprazole sodium. 5. Labetalol. 6. Boost. ALLERGIES: No known drug allergies. FAMILY HISTORY: History of hypertension and RA. SOCIAL HISTORY: This is a 77-year-old gentleman lives with his . He does not smoke, use drugs. Drinks approximately 1 beer a day. REVIEW OF SYSTEMS: A complete 14 point review of system was reviewed with the patient. The patient is positive for GERD. He denies history of DVT, PE, hepatitis, HIV or anesthesia problems. PHYSICAL EXAMINATION GENERAL: Well developed, well nourished in no acute distress. VITAL SIGNS: He stands 5 feet 8 inches tall, he is 162 pounds, blood pressure is 144/74, heart rate is 72. HEENT: Normocephalic, atraumatic. NECK: Supple. No palpable lymph nodes. PULMONARY: Lungs are clear to auscultation bilaterally. CARDIO: Regular rate and rhythm. Strong S1 and S2. ABDOMEN: Soft, nontender, nondistended. NEUROLOGIC: He is alert and oriented x3. MUSCULOSKELETAL: Left lower extremity, the skin is intact. There are no open wounds or abrasions. He walks with antalgic type gait favoring his left hip. He has internal and external rotation of the left hip. He has 2+ dorsalis pedis pulses. Intact sensation. He has lower extremity muscle groups strength is intact at 5/5. ASSESSMENT AND PLAN: Mr. Duron is a 77-year-old gentleman with endstage osteoarthritis of the left hip. He has failed conservative management and elected to proceed with a left total hip arthroplasty, which is scheduled for with Dr. Encarnacion. Dr. Encarnacion discussed the risks, benefits of surgery at today's visit and all of his questions were answered. He will follow with Dr. Encarnacion in 2 weeks after the surgery. AYUSH STUART [id number]/[facility] #: [id number] [facility]
[~2018-02-05 06:41] MED LIST: Acetaminophen TAB* 325 MG PO ONE; Buffered Lidocaine 0.9% SYRIN* 5 ML/SYR SYRINGE INTRADERM ONE; Gabapentin CAP(*) 300 MG PO ONE; celeCOXIB CAP* 100 MG PO ONE
--- OUTSIDE RECORDS SUMMARY | 2018-02-05 06:45 | XMS REPORT ---
:1940 External Reference #:[id number] Author Organization [facility] Address [address] [place] [address] [place] [address] Phone [phone] Care Team Providers Name Role Phone Lawrence Lala D.O. Primary Care Physician Unavailable Payers Type Date Identification Numbers Payment Provider Subscriber Medicare Primary Effective: Policy Number: Medicare Martin Duron 2006 [id number] Expires: 2012 PayID: [id number] [address] [place] [address] [facility] Part B Expires: 2012 Policy Number: [facility] Martin Duron [id number] Care (Oon) Group Number: [id number] [address] PayID: [id number] [place] [address] Health Maintenance Policy Number: [facility] Medicare Martin Duron Organization (HMO) [id number] Solutions Group Number: [id number] [address] [address] PayID: [id number] [place] [address] Problems Date Description Provider Status Onset: 01/11/2018 Localized, primary osteoarthritis of the Hannah Encarnacion M.D. Active pelvic region and thigh Family History Date Family Member(s) Problem(s) Comments General Rheumatoid Arthritis General son is a musician and plays guitar General Hypertension Father Rheumatoid Arthritis Social History Type Date Description Comments Marital Status Lives With Occupation Retired Cigarette Use Former Cigarette Smoker ETOH Use Currently consumes alcohol 2 beers daily Smoking Patient is a former smoker quit 1970's, smoked 1/2PPD for 3 years Recreational Drug Use Denies Drug Use Daily Caffeine Consumes on average 1 cup of regular coffee per day Exercise Type/Frequency Exercises regularly Allergies, Adverse Reactions, Alerts Date Description Reaction Status Severity Comments 11/09/2012 NKDA active Medications Medication Date Status Form Strength Qnty SIG Indications Ordering Provider Aspirin Low Active Chewtabs 81mg 1 po qd Donato Strength Ana Curtis M.Lul Glucosamine Active Capsules 1500Com 1 po qd Donato Chondroitin Ana Curtis, 1500 Complex M.D. Iron Active Tablets 325(65Fe) 1 by Unknown 000 mg mouth every day Pantoprazole Active 1 by Unknown Sodium 000 mouth every day Labetalol HCL Active Unknown 000 Nitro-bid Hx Ointment 2% 30gm apply I73. - small Juliocesar, amount to M.D. 018 webs of digits as needed for attack of raynaud's Fish Oil Double Hx Capsules 1200mg 30caps 1 pobid Donato Strength 013 - Ever, M.D. 018 Bystolic Hx Tablets 5mg 30tabs 1 po qd Donato Perez - Ever, M.D. 016 HCTZ Hx 25 1 daily Donato Ana - Ever, M.D. 016 Multi-Day Hx Tablets 30tabs 1 po qd Donato Vitamins Ana - Ever, M.D. 018 Vit C Hx 500mg 1 daily Donato Perez - Ever, M.D. 016 Vit E Hx Donato 013 - Ever, M.D. 016 Vicodin Hx Tablets 5-500mg 40tabs 1-2 by Donato Buckley - mouth Ever, every 4-6 M.D. 016 hours and needed for pain Vitamin B-12 Hx daily Unknown 000 - 018 Ginkgo Biloba Hx Capsules 500mg daily Unknown 000 - 018 Certo Hx with Unknown 000 - grape juice 018 daily Androgel Pump Hx Gel 20.25mg/Ac 1 pumps Unknown 000 - t (1.62%) topical daily 018 Vital Signs Date Vital Result Comment 01/25/2018 Height 68 inches 5'8" Weight 162.00 lb Heart Rate 72 /min BP Systolic 144 mmHg BP Diastolic 74 mmHg BMI (Body Mass Index) 24.6 kg/m2 01/11/2018 Height 68 inches 5'8" Weight 162.00 lb Heart Rate 60 /min BP Systolic 140 mmHg BP Diastolic 80 mmHg BMI (Body Mass Index) 24.6 kg/m2 03/19/2016 Height 72 inches 6'0" Weight 170.00 lb Heart Rate 64 /min BP Systolic Sitting 158 mmHg BP Diastolic Sitting 84 mmHg Body Temperature 97.3 F Pain Level 2 BMI (Body Mass Index) 23.1 kg/m2 02/22/2016 Height 72 inches 6'0" Weight 172.25 lb Heart Rate 72 /min BP Systolic Sitting 140 mmHg BP Diastolic Sitting 100 mmHg Respiratory Rate 14 /min Body Temperature 98.9 F Pain Level 2 BMI (Body Mass Index) 23.4 kg/m2 01/09/2016 Height 72 inches 6'0" Weight 171.00 lb Heart Rate 64 /min 66 BP Systolic 160 mmHg left arm, reg cuff BP Diastolic 84 mmHg left arm, reg cuff BP Systolic Sitting 152 mmHg right arm, reg cuff BP Diastolic Sitting 84 mmHg right arm, reg cuff BP Systolic Standing 144 mmHg right arm, reg cuff BP Diastolic Standing 82 mmHg right arm, reg cuff Respiratory Rate 16 /min BMI (Body Mass Index) 23.2 kg/m2 Results Test Date Test Result H/L Range Note Urinalysis Profile 01/25/2018 Urine Color Yellow 1 Urine Appearance Clear 1 Urine Specific Mcdavid 1.014 1.010-1.030 1 Urine pH 5.0 5-9 1 Urine Urobilinogen Negative Negative 1 Urine Ketones Negative Negative 1 Urine Protein Negative Negative 1 Urine Leukocytes Negative Negative 1 Urine Blood Negative Negative 1 * * Negative 1, 2 Urine Nitrite Negative Negative 1 Urine Bilirubin Negative Negative 1 Urine Glucose Negative Negative 1 CBC Auto Diff 01/25/2018 White Blood Count 6.4 10^3/uL 3.5-10.8 1 Red Blood Count 4.03 10^6/uL 4.00-5.40 1 Hemoglobin 13.1 g/dL Low 14.0-18.0 1 Hematocrit 38 % Low 42-52 1 Mean Corpuscular Volume 94 fL 80-94 1 Mean Corpuscular Hemoglobin 32 pg High 27-31 1 Mean Corpuscular HGB Conc 35 g/dL 31-36 1 Red Cell Distribution Width 13 % 10.5-15 1 Platelet Count 258 10^3/uL 150-450 1 Mean Platelet Volume 7.1 um3 Low 7.4-10.4 1 Abs Neutrophils 4.3 10^3/uL 1.5-7.7 1 Abs Lymphocytes 1.0 10^3/uL 1.0-4.8 1 Abs Monocytes 0.9 10^3/uL High 0-0.8 1 Abs Eosinophils 0.2 10^3/uL 0-0.6 1 Abs Basophils 0 10^3/uL 0-0.2 1 Abs Nucleated RBC 0 10^3/uL 1 Granulocyte % 67.7 % 38-83 1 Lymphocyte % 14.9 % Low 25-47 1 Monocyte % 13.5 % High 0-7 1 Eosinophil % 3.3 % 0-6 1 Basophil % 0.6 % 0-2 1 Nucleated Red Blood Cells % 0 1 Inr/Protime 01/25/2018 Inr 0.94 0.77-1.02 1 Laboratory test finding 01/25/2018 Partial Thrombo 37.9 seconds High 26.0- 36.3 1, 3 Time PTT Type & Screen 01/25/2018 Patient Blood Type O Negative 1 Antibody Screen NEGATIVE 1 Comp Metabolic Panel 01/25/2018 Sodium 134 mmol/L Low 135-145 1 Potassium 4.4 mmol/L 3.5-5.0 1 Chloride 95 mmol/L Low 101-111 1 Co2 Carbon Dioxide 31 mmol/L 22-32 1 Anion Gap 8 mmol/L 2-11 1 Glucose 99 mg/dL 70-100 1 Blood Urea Nitrogen 14 mg/dL 6-24 1 Creatinine 0.70 mg/dL 0.67-1.17 1 BUN/Creatinine Ratio 20.0 8-20 1 Calcium 9.4 mg/dL 8.6-10.3 1 Total Protein 7.3 g/dL 6.4-8.9 1 Albumin 4.2 g/dL 3.2-5.2 1 Globulin 3.1 g/dL 2-4 1 Albumin/Globulin Ratio 1.4 1-3 1 Total Bilirubin 0.60 mg/dL 0.2-1.0 1 Alkaline Phosphatase 81 U/L 34-104 1 Alt 22 U/L 7-52 1 Ast 18 U/L 13-39 1 Egfr Non- 109.6 >60 1 Egfr 132.7 >60 1, 4 Urine Culture And Sensitivities 01/25/2018 Urine Culture SEE RESULT BELOW 1, 5 1 AA 02/05 2 *Ascorbic acid is present which may interfere with detection of blood. 3 AA 02/05 4 Because ethnic data is not always readily available, this report includes an eGFR for both -Americans and non- Americans. The National Kidney Disease Education Program (NKDEP) does not endorse the use of the MDRD equation for patients that are not between the ages of 18 and 70, are , have extremes of body size, muscle mass, or nutritional status, or are non- or non-. According to the National Kidney Foundation, irrespective of diagnosis, the stage of the disease is based on the level of kidney function: Stage Description GFR(mL/min/1.73 m(2)) 1 Kidney damage with normal or decreased GFR 90 2 Kidney damage with mild decrease in GFR 60-89 3 Moderate decrease in GFR 30-59 4 Severe decrease in GFR 15-29 5 Kidney failure <15 (or dialysis) 5 SEE RESULT BELOW Name: MARTIN DURON Meliton : [address]: Hannah Encarnacion MD Acct: [id number] Unit: [id number] AGE: 77 Location: [facility] Re01/25/18 SEX: M Status: REG REF SPEC: [id number] ROCAEL: 01/25/18-[address] [facility] [address]: Hannah Encarnacion MD REQ: [id number] RECD: 01/25/18 STATUS: LISBETH CEE DR: Lawrence Lala DO _ SOURCE: URINE SPDESC: ORDERED: Urine Culture COMMENTS: TROY 02/05 QUERIES: Urine Source: Clean Catch Procedure Result Reported Site Urine Culture Final 01/26/18- 1315 ML No Growth (<1,000 CFU/mL) * ML - Main Lab . END OF REPORT DEPARTMENT OF PATHOLOGY, [address] [place] [address] Navi Carter M.D. Director [facility] # [id number] Procedures Date CPT Code Description Status 07/02/2012 74050 Nerve Conduction, Sensory Completed 07/02/2012 54246 Nerve Conduction, Motor W/O F-Wave Study Completed 02/10/2012 12364 Carpal Tunnel Release Completed Encounters Type Date Location Provider CPT E/M Dx Office Visit 01/11/2018 [facility] Hannha Encarnacion M.D. 45661 M25.552 9:30a Of Cait M16.12 Office Visit 12/24/2016 10:03a [facility], Charly Burger, 79926 K92.2 Hospitalists Tonny R55 I10 Office Visit 12/23/2016 10:03a [facility], Charly Burger, 40621 K92.2 Hospitalists Tonny R55 I10 Office Visit 12/22/2016 10:02a [facility], [place] [address] K92.2 Hospitalists R55 I10 Office Visit 12/21/2016 10:02a [facility] Nancy Soria 64773 K92.2 Assoc, INTERMODAL CUSTOMER SERVICE Hospitalists R55 I10 Office Visit 03/19/2016 10:20a [facility] Elliot Gandara, 48682 I73.00 Of Utility Arborist M.D. G60.3 R76.0 G56.00 Office Visit 02/22/2016 12:00p [facility] Elliot Gandara, 96638 I73.00 Of Utility Arborist M.D. G60.3 R76.0 L53.9 Office Visit 01/09/2016 3:00p [facility] Moustapha White, 41058 G60.[address] [facility] [place], FACC, FSCAI I73.00 Office Visit 07/06/2012 2:45p [facility] Of Donato Curtis M.D. 93196 354.0 Saulo AT [place] Office Visit 07/02/2012 2:00p [facility] Jeffery Garcia 22598 354.0 Services Of Saulo [place] Office Visit 06/08/2012 1:45p [facility] Curtis M.D. 66555 354.0 Saulo AT [place] Office Visit 01/20/2012 1:15p [facility] Curtis M.D. 53571 354.0 Utility Arborist AT [place] Office Visit 12/23/2011 9:00a [facility] Curtis M.D. 56008 354.0 Utility Arborist AT [place] Plan of Care Future Appointment(s):02/05/2018 8:30 am - AYUSH Nowak at [facility]02/17/2018 10:00 am - AYUSH Nowak at [facility]02/05/2018 8:30 am - Hannah Encarnacion M.D. at [facility]01/25/2018 - Hannah Encarnacion M.D.M25.552 Pain in left hipFollow up:Follow up: 2 weeks after xrkaqczN26.12 Unilateral primary osteoarthritis, left hip
--- OUTSIDE RECORDS SUMMARY | 2018-02-05 06:46 | XMS REPORT ---
:1940 External Reference #:[id number] Author Organization [facility] Address [address] [place] [address] Phone [phone] Care Team Providers Name Role Phone Lawrence Lala D.O. Primary Care Physician Unavailable Payers Type Date Identification Numbers Payment Provider Subscriber Medicare Primary Effective: Policy Number: Medicare Martin Duron 2006 [id number] Expires: 2012 PayID: [id number] [address] [place] [address] [facility] Part B Expires: 2012 Policy Number: [facility] Martin Duron [id number] Care (Oon) Group Number: [id number] [address] PayID: [id number] [place] [address] Health Maintenance Policy Number: [facility] Medicare Martin Duron Organization (HMO) [id number] Solutions Group Number: [id number] [address] [address] PayID: [id number] [place] [address] Problems Date Description Provider Status Onset: 01/11/2018 [...] Form Strength Qnty SIG Indications Ordering Provider Nitro-bid Active Ointment 2% 30gm apply I73.00 Elliot 016 small Juliocesar, amount to M.D. webs of digits as needed for attack of raynaud's Aspirin Low Active Chewtabs 81mg 1 po qd Donato Strength Ana Curtis M.D. Glucosamine Active Capsules 1500Com 1 po qd Donato Chondroitin Ana Curtis, 1500 Complex M.D. Iron Active Tablets 325(65Fe) 1 by Unknown 000 mg mouth every day Pantoprazole Active 1 by Unknown Sodium 000 mouth every day Fish Oil Double Hx Capsules 1200mg 30caps 1 pobid Donato Strength 013 - Ever, M.D. 018 Bystolic Hx Tablets 5mg 30tabs 1 po qd Donato 013 - Ever, M.D. 016 HCTZ Hx 25 1 daily Donato Perez - Ever, M.D. 016 Multi-Day Hx Tablets 30tabs 1 po qd Donato Vitamins Ana - Ever, M.D. 018 Vit C Hx 500mg 1 daily Donato Perez - Ever, M.D. 016 Vit E Hx Donato 013 - Ever, M.D. 016 Vicodin Hx Tablets 5-500mg 40tabs 1-2 by Donato Buckley - mouth Ever, every 4-6 M.D. 016 hours and needed for pain Vitamin B-12 000 Hx daily Unknown 000 - 018 Ginkgo Biloba Hx Capsules 500mg daily Unknown 000 - 018 Certo Hx with Unknown 000 - grape juice 018 daily Androgel Pump Hx Gel 20.25mg/Ac 1 pumps Unknown 000 - t (1.62%) topical daily 018 Vital Signs Date Vital Result Comment 01/11/2018 Height 68 inches 5'8" Weight 162.00 [...] BMI (Body Mass Index) 23.2 kg/m2 Results Description No Information Procedures Date CPT Code Description Status 07/02/2012 80938 Nerve Conduction, Sensory Completed 07/02/2012 57706 Nerve Conduction, Motor W/O F-Wave Study Completed 02/10/2012 68745 Carpal Tunnel Release Completed Encounters Type Date Location Provider CPT E/M Dx Office Visit 12/24/2016 [facility],jesse Burger, 39951 K92.2 10:03a True Lancasetr R55 I10 Office Visit 12/23/2016 10:03a [facility],jesse Burger, 98089 K92.2 Hospitalists Tonny R55 I10 Office Visit 12/22/2016 10:02a [facility] ,[place] [address] K92.2 Hospitalists R55 I10 Office Visit 12/21/2016 10:02a [facility] Nancy Soria 64497 K92.2 Assoc,pc HOUSING MANAGEMENT REPRESENTATIVE Hospitalists R55 I10 Office Visit 03/19/2016 10:20a [facility] Elliot Gandara, 25051 I73.00 Of Saulo Chapin.Lul G60.3 R76.0 G56.00 Office Visit 02/22/2016 12:00p [facility] Elliot Gandara, 04602 I73.00 Of [place] G60.3 R76.0 L53.9 Office Visit 01/09/2016 3:00p [facility] Moustapha White, 28294 G60.3 Vegetable Harvest Machine Operator AT [facility] [place] MD, FACC, FSCAI I73.00 Office Visit 07/06/2012 2:45p [facility] Don[facility] Curtis M.D. 27566 354.0 Vegetable Harvest Machine Operator AT [place] Office Visit 07/02/2012 2:00p [facility] Jeffery Garcia, 09474 354.0 Services Of Saulo [place] Office Visit 06/08/2012 1:45p [facility] Curtis M.D. 55676 354.0 Vegetable Harvest Machine Operator AT [place] Office Visit 01/20/2012 1:15p [facility] Curtis M.D. 15442 354.0 Vegetable Harvest Machine Operator AT [place] Office Visit 12/23/2011 9:00a [facility] Curtis M.D. 69570 354.0 Vegetable Harvest Machine Operator AT [place] Plan of Care Future Appointment(s):02/05/2018 8:30 am - Hannah Encarnacion M.D. at [facility]01/25/2018 10:00 am - Hannah Encarnacion M.D. at [facility]01/11/2018 - Hannah Encarnacion M.D.M25.552 Pain in left hipFollow up:Follow up: 7-10 days before hvnaqexW67.12 Unilateral primary osteoarthritis , left hip
--- OUTSIDE RECORDS SUMMARY | 2018-02-05 06:46 | XMS REPORT ---
:1940 External Reference #:[id number] Author Organization [facility] Address [address] [place] [address] [place] [address] Phone [phone] Care Team Providers Name Role Phone Lawrence Lala D.O. Primary Care Physician Unavailable Payers Type Date Identification Numbers Payment Provider Subscriber Medicare Primary Effective: Policy Number: Medicare Martin Duron 2006 [id number] Expires: 2012 PayID: [id number] [address] [place] [address] [facility] Part B Expires: 2012 Policy Number: [facility] Martin Duron [id number] Care (Oon) Group Number: [id number] [address] PayID: [id number] [place] [address] Health Maintenance Policy Number: [facility] Medicare Martin Duron Organization (HMO) [id number] Solutions Group Number: [id number] [address] [address] PayID: [id number] [place] [address] Problems Date Description Provider Status Onset: 01/11/2018 [...] Procedures Date CPT Code Description Status 07/02/2012 38092 Nerve Conduction, Sensory Completed 07/02/2012 65290 Nerve Conduction, Motor W/O F-Wave Study Completed 02/10/2012 90741 Carpal Tunnel Release Completed Encounters Type Date Location Provider CPT E/M Dx Office Visit 01/11/2018 [facility] Hannah Encarnacion M.D. 80838 M25.552 9:30a Of Cait M16.12 Office Visit 12/24/2016 10:03a [facility], Charly Burger, 92369 K92.2 Hospitalists Tonny R55 I10 Office Visit 12/23/2016 10:03a [facility],pc Charly Burger, 51821 K92.2 Hospitalists MGeorgeDGeorge R55 I10 Office Visit 12/22/2016 10:02a [facility],[place] [address] K92.2 Hospitalists R55 I10 Office Visit 12/21/2016 10:02a [facility] Nancy Soria, 93319 K92.2 Assoc,pc MAC OPERATOR Hospitalists R55 I10 Office Visit 03/19/2016 10:20a [facility] Elliot Gandara, 86372 I73.00 Of Saulo [place] G60.3 R76.0 G56.00 Office Visit 02/22/2016 12:00p [facility] Elliot Gandara, 81842 I73.00 Of Saulo [place] G60.3 R76.0 L53.9 Office Visit 01/09/2016 3:00p [facility] Moustapha White, 33431 G60.3 Stock Associate AT [facility] MD, FACC, FSCAI I73.00 Office Visit 07/06/2012 2:45p [facility] Don[facility] Curtis M.D. 87933 354.0 Stock Associate AT [place] Office Visit 07/02/2012 2:00p [facility] Jeffery Garcia, 89076 354.0 Services Of Saulo [place] Office Visit 06/08/2012 1:45p [facility] Don[facility] Curtis M.D. 56222 354.0 Saulo AT [place] Office Visit 01/20/2012 1:15p [facility] Curtis M.D. 31649 354.0 Stock Associate AT [place] Office Visit 12/23/2011 9:00a [facility] Curtis M.D. 92614 354.0 Stock Associate AT [place] Plan of Care Future Appointment(s):02/17/2018 10:00 am - AYUSH Nowak at [facility]02/05/2018 8:30 am - Hannah Encarnacion M.D. at [facility]01/25/2018 - Hannah Encarnacion M.D.M25.552 Pain in left hipNew Xrays:Hip Left 2 Views And Pelvis 17043 - [id number] up:Follow up: 2 weeks after uvgehqfJ84.12 Unilateral primary osteoarthritis, left hip
[2018-02-05] MEDS ORDERED: celeCOXIB CAP* 100 MG ONE (06:50)
[2018-02-05] MEDS ORDERED: Buffered Lidocaine 0.9% SYRIN* 5 ML/SYR SYRINGE ONE (06:50)
[2018-02-05] MEDS ORDERED: Gabapentin CAP(*) 300 MG ONE (06:50)
[2018-02-05] MEDS ORDERED: ceFAZolin 2 GM PREMIX (*) 2 GM/50 ML BAG IVPB ONE (06:50)
[2018-02-05] MEDS ORDERED: Acetaminophen TAB* 325 MG ONE (06:50)
[2018-02-05] MEDS ORDERED: Midazolam* 1 MG/ML 2 ML VIAL (2 MG) ONE ×2 (08:03→08:26)
[2018-02-05] MEDS ORDERED: Famotidine IV* 10 MG/ML 2 ML (20 mg) ONE (08:03)
[2018-02-05] MEDS ORDERED: fentaNYL* 50 MCG/ML 2 ML VIAL (100 MCG VIAL) ONE ×2 (08:04→09:24)
[2018-02-05] MEDS ORDERED: Cisatracurium* 2 MG/ML MDV 5 ML ONE (08:32)
[2018-02-05] MEDS ORDERED: Succinylcholine* 20 MG/ML 10 ML VIAL ONE (08:55)
[2018-02-05] MEDS ORDERED: Propofol* 10 MG/ML 20 ML BTL IV PUSH ONE (08:55)
[2018-02-05] MEDS ORDERED: Dexamethasone IV* 4 MG/ML 1 ML (4 MG) ONE (08:55)
[2018-02-05] MEDS ORDERED: EPHEDrine (Pressors)* 50 MG/ML VIAL ONE (08:57)
[2018-02-05] MEDS ORDERED: Hetastarch 6% in NS* 500 ML IV ONE (09:13)
[2018-02-05] MEDS ORDERED: HYDROcodone/ACETAMIN 5-325 MG* 1 TAB PO PRN ×2 (09:53)
[2018-02-05] MEDS ORDERED: Acetaminophen TAB* 325 MG PO PRN ×2 (09:53→10:39)
[2018-02-05] MEDS ORDERED: PROCHLORPERAZINE INJ 5 MG/ML 2 ML VIAL IV PRN (09:53)
[2018-02-05] MEDS ORDERED: DiMENhydriNATE IV* 50 MG/ML VIAL IV PUSH PRN (09:53)
[2018-02-05] MEDS ORDERED: diPHENhydraMINE IV* 50 MG/ML 1 ml VIAL (BENADRYL) IV PRN (09:53)
[2018-02-05] MEDS ORDERED: fentaNYL* 50 MCG/ML 2 ML VIAL (100 MCG VIAL) IV PRN (09:53)
[2018-02-05] MEDS ORDERED: Naloxone* 0.4 MG/ML 1 ML VIAL IV PRN (09:53)
[2018-02-05] MEDS ORDERED: Nalbuphine* 10 MG/ML 1 ML VIAL IV PRN (09:53)
[2018-02-05] MEDS ORDERED: HYDROmorphone INJ* 0.5 MG/0.5 ML SYRINGE IV PRN (09:53)
[2018-02-05] MEDS ORDERED: Ondansetron ODT TAB* 4 MG PO PRN (09:53)
[2018-02-05] MEDS ORDERED: Ondansetron INJ* 2 MG/ML VIAL IV PRN (09:53)
[2018-02-05] MEDS ORDERED: Ketorolac INJ* 30 MG/ML 1 ML VIAL IV PRN (09:53)
[2018-02-05] MEDS ORDERED: diPHENhydraMINE PO* 25 MG PO PRN (10:25)
[2018-02-05] MEDS ORDERED: Ondansetron TAB* 4 MG PO PRN (10:25)
[2018-02-05] MEDS ORDERED: Magnesium Hydroxide LIQ* 30 ML UDC PO PRN (10:25)
[2018-02-05] MEDS ORDERED: Morphine VIAL* 4 MG/ML VIAL (1 ml vial) IV PRN (10:25)
[2018-02-05] MEDS ORDERED: traZODone TAB* 50 MG TAB PO PRN (10:25)
--- NOTE | 2018-02-05 10:28 | RAD ---
HISTORY: LEFT TOTAL HIP REPLACEMENT COMPARISONS: January 25, 2018 VIEWS: 1, Single frontal view of the pelvis performed intraoperatively at 9:47 AM FINDINGS: BONE DENSITY: Normal. BONES: The patient is status post bilateral hip arthroplasty. On the left, there is a temporary femoral sizing component. JOINTS: The patient is status post bilateral hip arthroplasty. ALIGNMENT: There is no dislocation. SOFT TISSUES: Unremarkable. OTHER FINDINGS: None. IMPRESSION: LIMITED PORTABLE INTRAOPERATIVE VIEW OF THE PELVIS DURING HIP ARTHROPLASTY
--- NOTE | 2018-02-05 11:53 | RAD ---
INDICATION: Status post total left hip replacement surgery. COMPARISON: Comparison is made with a prior x-ray study from January 25, 2018. TECHNIQUE: AP views of the pelvis and frontal and lateral views of the left hip were obtained. FINDINGS: The patient is status post total left hip replacement surgery. The bones and prostheses are in normal alignment. There is a small amount of air present within the adjacent soft tissues consistent with the patient's recent surgery. The patient is status post remote total right hip replacement surgery. IMPRESSION: STATUS POST TOTAL LEFT HIP REPLACEMENT SURGERY.
[2018-02-05 12:03] LABS: INR 1.11 (0.77-1.02)
[2018-02-05] MEDS: oxyCODONE/Acetamin 5/325 MG* TAB PO PRN ×2 (13:07→20:55)
--- NOTE | 2018-02-05 13:30 | CONS ---
CC: Dr. Lala; Dr. Encarnacion * CONSULTATION REPORT: DATE OF CONSULT: 02/05/18 PRIMARY CARE PROVIDER: Dr. Lala. ATTENDING PHYSICIAN WHILE IN THE HOSPITAL: Dr. Santiago Kay (report dictated by Scott Valdovinos NP). REQUESTING PHYSICIAN IN CONSULT: Dr. Encarnacion. REASON FOR MEDICAL CONSULT: Evaluation and medical management of comorbid medical conditions. HISTORY OF PRESENT ILLNESS: I refer you to Dr. Encarnacion's H and P for further details. In short, Mr. Duron is a 77-year-old male patient. He has a history of prostate cancer, history of thoracic aneurysm dissection Tristan B type, who presented to orthopedic services in the outpatient setting originally due to the fact that he was having extreme pain in his left hip. It was affecting his activities of daily living. He had failed conservative therapy and management. He came to Dr. Encarnacion's team today, underwent a total hip replacement. Because of his medical complexity, we were asked to evaluate in consult. He was evaluated in the PACU. The patient says that he is just feeling a little tired right now and drowsy. He denies any chest pain or shortness of breath. He denies any abdominal pain. He says he is not feeling nauseated. He says that he is feeling well. He says that he is not really having any pain in that left hip. Again, because of his complexity, we were asked to evaluate in consult. PAST MEDICAL HISTORY: Significant for: 1. Prostate cancer. 2. Thoracic aneurysm with dissection. 3. Hypertension. 4. GERD. 5. Dyslipidemia. 6. Raynaud's. 7. Degenerative joint disease. PAST SURGICAL HISTORY: 1. He has had thoracic aneurysm repair endovascular repair with Dr. Chapman at [facility], there is a note in the chart for details. 2. He has had right total hip replacement. 3. Left knee replacement. 4. Carpal tunnel. 5. Prostatectomy. HOME MEDICATIONS: Include: 1. Visine 15 cc ophthalmic b.i.d. 2. Protonix 40 mg daily. 3. Multivitamin 1 tablet daily. 4. Boost 1 can p.o. daily. 5. Labetalol 100 mg p.o. t.i.d. 6. Glucosamine and chondroitin 1 tablet p.o. daily. 7. Ferrous sulfate 325 mg p.o. daily. 8. Aspirin 81 mg daily. ALLERGIES TO MEDICATIONS: Include no known drug allergies. FAMILY HISTORY: His mother had a history of CVA and diabetes. Father had a history of arthritis. SOCIAL HISTORY: He is a former smoker. He does not drink alcohol. Surrogate decision maker is his . REVIEW OF SYSTEMS: There is no documented fever. He denies having any significant weight change. There is no double vision. He denies having any ear discharge. There is no rhinorrhea. He denies having any sore throat. There is no thyroid enlargement. He denies having any chest pain. Again, there was no orthopnea, no nocturnal dyspnea. There was no abdominal pain. There was no nausea, no vomiting. No dysuria, no frequency. No seizure, no loss of consciousness. No pruritus and no skin ulcerations. Review of 14 systems completed, all others negative. PHYSICAL EXAM: Vital Signs: Blood pressure 133/78 with a pulse of 69, respirations 14, O2 sat on 4 L, temperature 97.5. Generally, at this time, Mr. Duron is a 77-year-old male patient. He is well-nourished, well-developed. He is sitting in the PACU stretcher. He does not appear to be in any acute distress. HEENT: Head: Atraumatic, normocephalic. Eyes: EOMs are intact. Sclerae anicteric, not pale. Throat: Oral mucosa appears to be moist. No oropharyngeal erythema. Neck is supple. Lungs: Clear to auscultation. No wheezes, rales, or rhonchi. Heart: Sounds S1, S2. Regular rate and rhythm. No murmurs, rubs, or gallops. Abdomen: Soft, flat, nontender. Bowel sounds hypoactive. Extremities: Pulses were 2+ throughout. He is able to move all 4 extremities with 5/5 strength with the exception of the lower extremities as he is in a hip abductor pillow, but distal CSM checks were intact. Upper extremities with 5/5 strength. Neurologically, he is awake, he is a little drowsy, but he is alert, he is oriented x3. His speech is clear. Tongue midline. Junior Linux Administrator equal. No gross focal deficits. Skin is intact with the exception he has an incision to the left hip, which is covered with an ABD dressing. It is clean, dry, and intact. DIAGNOSTIC STUDIES/LAB DATA: Labs, which are preop reveal WBC of 6.4, RBC of 4.03, hemoglobin of 13.1, hematocrit of 38, platelet count 258. The INR was 0.94. Sodium 134, potassium 4.4, chloride 95, bicarb 31, BUN 14, creatinine 0.70, glucose 99. AST 18, ALT 22. Urine was obtained, showed 1+ blood, preop. He did have a chest x-ray preop. No evidence of acute cardiopulmonary disease. EKG showing a normal sinus rhythm, rate of 65. No ST elevation or T-wave inversions. Old medical records were reviewed. ASSESSMENT AND PLAN: Mr. Duron is a 77-year-old male patient coming in to the orthopedic service today for left total hip replacement. We were asked to evaluate in consult. Recommendations at this point are: 1. Status post left total hip replacement. I will defer the management to Dr. Encarnacion and her team. 2. History of thoracic aneurysm. At this point, we will strive for blood pressure control and heart rate control. Continue his labetalol t.i.d. and we will continue to monitor. 3. Hypertension. Continue meds as prescribed. 4. Hyperlipidemia. Continue with lifestyle modifications. 5. Raynaud's disease. Continue with supportive care. 6. Degenerative joint disease. Follow with his PCP. 7. History of prostate cancer. Follow with his PCP. 8. Gastroesophageal reflux disease. Continue PPI therapy. 9. DVT prophylaxis. We will defer to the primary team. 10. Fluids, electrolytes, and nutrition. I recommend a heart-healthy diet. 11. Code status. Full code. TIME SPENT: On the consult was 60 minutes, greater than half of the time was spent [id number] with the patient obtaining my history and physical; the other half of the time was spent going over the plan of care with the patient and implementing the plan of care. I did discuss the plan of care with my attending Dr. Kay; he is in agreement. SCOTT VALDOVINOS NP [id number]/[facility] #: [id number] [facility] CENTERReid
[2018-02-05] MEDS: Cyclobenzaprine TAB* 10 MG PO PRN (14:37)
[2018-02-05] MEDS: Labetalol TAB* 100 MG PO SCH ×2 (14:37→20:55)
[2018-02-05] MEDS: oxyCODONE TAB* 5 MG TAB PO PRN (16:52)
[2018-02-05] MEDS: ceFAZolin 1 GM in Dextrose (*) 1 GM/50 ML BAG IVPB SCH (16:52)
[2018-02-05] MEDS ORDERED: Warfarin TAB(*) 6 MG PO ONE (17:00)
[2018-02-05] MEDS: Docusate CAP* 100 MG PO SCH (20:55)
[2018-02-05] MEDS: Magnesium Hydroxide LIQ* 30 ML UDC PO SCH (20:56)
[2018-02-06] MEDS: ceFAZolin 1 GM in Dextrose (*) 1 GM/50 ML BAG IVPB SCH ×2 (00:33→08:43)
[2018-02-06] MEDS: oxyCODONE TAB* 5 MG TAB PO PRN (00:56)
--- NOTE | 2018-02-06 01:27 | OP ---
OPERATIVE NOTE: DATE OF OPERATION: 02/05/18 DATE OF : 42 ATTENDING SURGEON: Hannah Encarnacion MD. INFANT AND TODDLER TEACHER: AYUSH Tillman Ms. did help throughout the procedure with preparation of the leg, wound retraction, manipulation of the hip, and wound closure. ANESTHESIOLOGIST: Dr. Rider. ANESTHESIA: General. PRE-OP DIAGNOSIS: Severe end-stage degenerative osteoarthritis of the left hip joint. POST-OP DIAGNOSIS: Severe end-stage degenerative osteoarthritis of the left hip joint. OPERATIVE PROCEDURE: Left total hip arthroplasty. COMPLICATIONS: None. ESTIMATED BLOOD LOSS: 400 cc. HARDWARE USED: This is Elroy uncemented total hip arthroplasty hardware. For the cup, a Tritanium cluster hole shell 56E, a single 25-mm cancellous bone screw. For the insert, Trident X3 0-degree polyethylene insert 36E. For the stem, an Accolade TMZF size 5 with a 127-degree neck angle. For the head, a Biolox delta ceramic 40 femoral head 36 -5. SPECIMEN: Femoral head and acetabular release sent to pathology. BRIEF HISTORY/INDICATION: Mr. Duron is a 77-year-old gentleman with years of increasingly severe left hip pain. Recently, the pain has become severe. He failed conservative treatment with home exercise program, antiinflammatories , ambulatory assistive devices and pain medications. Radiographs showed bone-on -bone arthritis. Due to continued pain and decreased quality of life, the patient elected to undergo left total hip arthroplasty. Informed consent was obtained from the patient. He understood the risks of surgery included but were not limited to bleeding, infection, damage to nearby structures, continued pain, need for further surgery, intraoperative fracture, nerve palsy, hardware failure or loosening, dislocation, leg length discrepancy, stroke, heart attack , blood clot, and . He wished to proceed. INTRAOPERATIVE FINDINGS: Intraoperatively, the patient was noted to have severe end-stage arthritis. He had full thickness loss of cartilage along the femoral head and acetabulum. He had extensive degeneration of the labrum. DESCRIPTION OF PROCEDURE: Mr. Duron was identified in the preanesthesia unit. His left lower extremity was marked as the correct operative side. Informed consent was signed and placed in the chart. The patient was taken to the operating room and placed under general anesthesia. A Mena catheter was placed. The patient was placed in the right lateral decubitus position on the peg board. All bony prominences were well padded. The left lower extremity was prepped and draped in the usual sterile fashion. Preop time-out was made to correctly identify the patient's side and site. Appropriate perioperative antibiotics were given within 1 hour of incision. A 12-cm posterior hip incision was made with a #10 blade and carried down to the lateral fascia layer. New #10 blade was used to make an incision in line with the skin incision. A Charnley retractor was placed. The piriformis and conjoint tendons were elevated off the posterolateral femur using electrocautery. These were tagged with #5 Ethibond. Electrocautery was next used to make a standard posterolateral capsular flap and this was also tagged with #5 Ethibond. The hip was carefully dislocated. Lesser troch to the center of the femoral head measured 62 mm. Oscillating saw was used to make the appropriate femoral neck cut. The femoral head was carefully removed. The femur was carefully retracted anteriorly. After appropriate placement of retractors, the acetabulum was well visualized. A long-handled knife was used to sharply remove any remaining labrum from the acetabular rim. The acetabulum was sequentially reamed up to a size 55. Bleeding subchondral bone bed was obtained. A 55 trial had excellent fit. Final implant chosen was a 56E Tritanium cluster hole shell. This was impacted into position and had excellent stability. There was appropriate anteversion and abduction angle. A single 25 mm screw was placed in the superior posterior quadrant for extra stability. Liner chosen was a Trident X3 0-degree polyethylene insert 36E. This was impacted into the acetabulum without difficulty. Stability of the liner was checked and rechecked and noted to be stable. Attention was next turned to preparation of the proximal femur. A canal finder was used to enter the proximal femur. It was sequentially broached up to a size 5. Size 5 broach had good stability and appropriate anteversion. A 127 neck trial was chosen as well as a 36 -2.5 head trial. Lesser troch to center of the femoral head measured 63 mm. The hip was reduced and taken through a range of motion. The hip was stable in all positions. There was good soft tissue tension and appropriate leg length. The hip was carefully dislocated. All trials were removed. Final implant chosen was an Accolade TMZF size 5 with a 127-degree neck. This was impacted into the femoral canal without difficulty. Excellent stability was obtained. There was appropriate anteversion. The final implant did sit up two to three more millimeters than the broach had sat. Therefore, a 36 -5 Biolox delta ceramic V40 femoral head was chosen as the final implant. This was impacted onto the femoral neck. Lesser troch to center of the femoral head measured 63 mm. The hip was reduced and taken through a range of motion. The hip was stable in all positions. The hip was copiously irrigated with sterile saline. Previously tagged capsule and tendons were reapproximated to the posterolateral femur through 2 trochanteric drill holes. The lateral fascia layer was closed using interrupted #1 Vicryl. The rest of the incision was closed in a layered fashion using 0 and 2-0 Vicryl. Skin was closed using running 3-0 Monocryl suture with Dermabond. Sterile Adaptic, 4x4's, and paper tape were used to cover the incision. The patient's anesthesia was reversed without difficulty. He was taken to the PACU in stable condition. Intended weightbearing will be weightbearing as tolerated. Intended DVT prophylaxis will be Coumadin with a Lovenox bridge. [id number]/[facility] #: [id number] CAT
[2018-02-06] MEDS: Cyclobenzaprine TAB* 10 MG PO PRN (03:42)
[2018-02-06] MEDS: oxyCODONE/Acetamin 5/325 MG* TAB PO PRN ×3 (03:42→12:41)
[2018-02-06 05:50] LABS: Hematocrit 28 % (42-52); Hemoglobin 9.8 g/dl (14.0-18.0); Mean Platelet Volume 7.3 um3 (7.4-10.4); Platelet Count 192 10^3/ul (150-450)
[2018-02-06] MEDS: Magnesium Hydroxide LIQ* 30 ML UDC PO SCH (08:44)
[2018-02-06] MEDS: Docusate CAP* 100 MG PO SCH (08:45)
[2018-02-06] MEDS: Labetalol TAB* 100 MG PO SCH (08:46)
[2018-02-06] MEDS ORDERED: Ferrous Sulfate TAB* 325 MG PO SCH (09:00)
[2018-02-06] MEDS ORDERED: LACTOSE REDUCED FOOD PO SCH (09:00)
[2018-02-06] MEDS ORDERED: Omeprazole CAP* 20 MG PO SCH (09:00)
[2018-02-06] MEDS ORDERED: Vitamin THERAPEUTIC TAB PO SCH (09:00)
[2018-02-06] MEDS ORDERED: Enoxaparin(*) 30 MG/0.3 ML SYR SUBCUT SCH (12:00)
[2018-02-06 12:39] VITALS: BP 100/56
--- NOTE | 2018-02-06 13:09 | PN ---
Progress Note - Progress Note Date of Service: 02/06/18 SOAP: Subjective: Pt is doing well. Progressing well with PT. Pain controlled with oral pain meds. Denies CP/SOB, F/C, calf pain. Eager to go home Objective: PE- 77y/o WDWN M, NAD A&Ox3 LLE- dressing changed, inc c/d/i, +DF/ PF ankle, calf soft NT, +2 Dp pulse, SILT distally Vital Signs Temp Pulse Resp BP Pulse Ox 98.6 F 89 18 100/56 96 02/06/18 11:44 02/06/18 11:44 02/06/18 12:43 02/06/18 11:44 02/06/18 11:44 Laboratory Results - last 24 hr 02/06/18 02/06/18 05:33 05:33 Hgb 9.8 L Hct 28 L Plt Count 192 MPV 7.3 L Sodium 134 L Potassium 4.4 Chloride 99 L Carbon Dioxide 31 Anion Gap 4 BUN 11 Creatinine 0.57 L Est GFR ( Amer) 168.2 Est GFR (Non-Af Amer) 139.0 BUN/Creatinine Ratio 19.3 Glucose 120 H Calcium 8.1 L Assessment: POD 1 LTHA Plan: WBAT LLE- cont PT/OT Cont coumadin for dvt prophylaxis, percocet for pain and colace for constipation Post hip precautions Stable for DC to home today with home VNS F/U 10-14 days post op
--- NOTE | 2018-02-06 15:06 | DS ---
DISCHARGE SUMMARY: DATE OF ADMISSION: 02/05/18 DATE OF DISCHARGE: 02/06/18 PROVIDER: Dr. Hannah Encarnacion.* (DICTATED BY AYUSH YOO) ADMITTING DIAGNOSIS: Left hip osteoarthritis. SECONDARY DIAGNOSES: 1. Prostate cancer. 2. Thoracic aortic dissection. 3. Hypertension. 4. Gastroesophageal reflux disease. 5. High cholesterol. 6. Bleeding ulcers. CONSULTATION: PT/OT and Medicine. HISTORY OF PRESENT ILLNESS: Mr. Duron is a 77-year-old male, who presented to the clinic with severe end-stage osteoarthritis of his left hip. He failed conservative measures and agreed to undergo left total hip arthroplasty with Dr. Encarnacion on 02/05/18. HOSPITAL COURSE: The patient was admitted to [facility] on . He underwent a left total hip arthroplasty. Postoperatively, he recovered in the short-stay surgical unit. Postop day 1, his Mena was removed. He was able to urinate on his own. He was advanced to a regular diet without difficulty. His pain was controlled with oral Percocet. He was restarted on home medications. Labs and vitals remained stable. He was able to weight bear as tolerated on the left lower extremity. He advanced appropriately with physical therapy and occupational therapy. DVT prophylaxis was managed with Lovenox and Coumadin until he reached therapeutic INR. By postop day 1, he was orthopedically and medically stable for discharge to home with VNS services. DISCHARGE CONDITION: Stable. DISCHARGE MEDICATIONS: Home medications continued on discharge to include, 1. Multivitamin one tablet by mouth in the morning. 2. Labetalol 100 mg one tab three times a day. 3. Glucosamine chondroitin one tablet in the morning. 4. Pantoprazole sodium 40 mg in the morning. 5. Boost 237 mL once in the morning. 6. Ferrous sulfate 325 mg in the morning. 7. Visine Max redness relief 15 mg in each eye twice a day. 8. Aspirin 81 mg one by mouth in the morning. He understands he is to not take this while on the Coumadin. New medication on discharge to include, 1. Colace 100 mg one tab three times a day as needed for constipation. 2. Percocet 5/325 one to two every four to six hours as needed for pain. 3. Coumadin 2 mg tablet one to five daily as directed by his doctor. DISCHARGE INSTRUCTIONS: The patient is weightbearing as tolerated on the left lower extremity. It is okay for him to shower postop day 3. No swimming, bathing or submerging of the wound. Use gentle soap, to pat dry, cover with gauze and tape. Call the orthopedic office with increased drainage, redness, chest pain, shortness of breath, calf pain, fever greater than 101.5. Regular diet, increased fluids and fiber for constipation and use stool softeners. Call office if no bowel movement within 48 hours. Continue posterior hip precautions. Do not cross the legs or bend greater than 90 degrees or squat. Continue physical therapy and occupational therapy exercises as shown. Visiting home nurses to do wound checks and visiting home nurses to do blood draws for INR on Thursday and . Take Coumadin for DVT prophylaxis for 30 days. Coumadin dosing on 02/06/18 is 8 mg, on 02/07/18 is 8 mg, redraw on 02/08/18. Do not take aspirin, ibuprofen or naproxen while on Coumadin. Pain control with Percocet. Do not exceed 4000 mg of Tylenol a day and take Colace as needed for constipation while taking Percocet. He will require antibiotics prior to any future dental work and he will follow up with Dr. Encarnacion 10 to 14 days postop. AYUSH YOO [id number]/[facility] #: [id number] MTDD
--- NOTE | 2018-02-06 15:23 | PN ---
Subjective Date of Service: 02/06/18 Interval History: nO COMPLAINTS SITTING IN THE CHAIR. DENIES CHEST PAIN OR SHORTNESS OF BREATH. DENIES CALF PAIN. DENIES N/V/D. STATES THAT HE IS READY TO GO HOME. Family History: Unchanged from Admission Social History: Unchanged from Admission Past Medical History: Unchanged from Admission Objective Active Medications: Acetaminophen (Tylenol Tab*) 650 mg PO ONCE PRN PRN Reason: FEVER/PAIN Cyclobenzaprine HCl (Flexeril Tab*) 10 mg PO TID PRN PRN Reason: SPASMS Last Admin: 02/06/18 03:42 Dose: 10 mg Diphenhydramine HCl (Benadryl Po*) 25 mg PO Q6H PRN PRN Reason: itching Docusate Sodium (Colace Cap*) 100 mg PO BID [facility] Last Admin: 02/06/18 08:45 Dose: 100 mg Enoxaparin Sodium (Lovenox(*)) 30 mg SUBCUT Q24H [facility] Last Admin: 02/06/18 12:42 Dose: 30 mg Ferrous Sulfate (Ferrous Sulfate Tab*) 325 mg PO QAM [facility] Last Admin: 02/06/18 08:45 Dose: 325 mg Lactated Ringer's (Lactated Ringers 1000 Ml Bag*) 1,000 mls @ 100 mls/hr IV PER RATE [facility] Labetalol HCl (Trandate Tab*) 100 mg PO TID [facility] Last Admin: 02/06/18 08:46 Dose: 100 mg Magnesium Hydroxide (Milk Of Magnesia Liq*) 30 ml PO BID [facility] Last Admin: 02/06/18 08:44 Dose: 30 ml Magnesium Hydroxide (Milk Of Magnesia Liq*) 30 ml PO Q6H PRN PRN Reason: constipation Morphine Sulfate (Morphine Vial*) 2 mg IV Q2H PRN PRN Reason: PAIN - BREAKTHROUGH Multivitamins (Theragran Tab*) 1 tab PO DAILY [facility] Last Admin: 02/06/18 08:47 Dose: 1 tab [Visine Max Redness (Relief Drop] 15 Ml)) 1 ml OP BID [facility] Last Admin: 02/06/18 08:48 Dose: 1 ml Omeprazole (Prilosec Cap*) 20 mg PO QAM [facility] Last Admin: 02/06/18 08:46 Dose: 20 mg Ondansetron HCl (Zofran Tab*) 4 mg PO Q6H PRN PRN Reason: NAUSEA Oxycodone HCl (Roxycodone Tab*) 10 mg PO Q4H PRN PRN Reason: PAIN - MODERATE TO SEVERE Last Admin: 02/06/18 00:56 Dose: 10 mg Oxycodone/Acetaminophen (Percocet 5/325 Tab*) 2 tab PO Q4H PRN PRN Reason: PAIN - MODERATE Last Admin: 02/06/18 12:41 Dose: 2 tab Oxycodone/Acetaminophen (Percocet 5/325 Tab*) 1 tab PO Q4H PRN PRN Reason: PAIN Last Admin: 02/06/18 03:42 Dose: 1 tab Trazodone HCl (Desyrel Tab*) 25 mg PO BEDTIME PRN PRN Reason: insomnia Vital Signs - 8 hr 02/06/18 02/06/18 02/06/18 07:34 08:00 08:49 Temperature 98.8 F Pulse Rate 78 Respiratory 16 18 18 Rate Blood Pressure 103/44 (mmHg) O2 Sat by Pulse 97 Oximetry 02/06/18 02/06/18 02/06/18 11:44 12:41 12:43 Temperature 98.6 F Pulse Rate 89 Respiratory 17 18 18 Rate Blood Pressure 100/56 (mmHg) O2 Sat by Pulse 96 Oximetry Oxygen Devices in Use Now: None Appearance: APPEARS COMFORTABLE SITTING IN THE CHAIR, APPEARS STATED AGE Eyes: No Scleral Icterus Ears/Nose/Mouth/Throat: Clear Oropharnyx, Mucous Membranes Moist Neck: NL Appearance and Movements; NL JVP, Trachea Midline Respiratory: Symmetrical Chest Expansion and Respiratory Effort, Clear to Auscultation Cardiovascular: NL Sounds; No Murmurs; No JVD, No Edema Abdominal: NL Sounds; No Tenderness; No Distention Extremities: No Edema, No Clubbing, Cyanosis Skin: No Rash or Ulcers, - - DRESSING INTACT TO LEFT HIP Neurological: Alert and Oriented x 3 Nutrition: Taking PO's Result Diagrams: 02/06/18 05:33 02/06/18 05:33 Assess/Plan/Problems-Billing Assessment: Mr. Duron is a 77 y.o male that presented to the hospital for an elective total left hip replacement with Dr. Encarnacion - consulted to manage chronic medical conditions. - Patient Problems (1) Status post total hip replacement, left Current Visit: Yes Status: Acute Code(s): Z96.642 - PRESENCE OF LEFT ARTIFICIAL HIP JOINT SNOMED Code(s): 347936829673 Comment: - management per ortho - PT/OT per ortho (2) GERD (gastroesophageal reflux disease) Current Visit: Yes Status: Acute Code(s): K21.9 - GASTRO-ESOPHAGEAL REFLUX DISEASE WITHOUT ESOPHAGITIS SNOMED Code(s): 720565166 Comment: stable- continue omeprazole (3) HTN (hypertension) Current Visit: No Status: Acute Code(s): I10 - ESSENTIAL (PRIMARY) HYPERTENSION SNOMED Code(s): 65085590 Comment: - labetalol at lower dose 100mg TID- may need to decreased to BID as BP is soft - will continue to monitor (4) DVT prophylaxis Current Visit: No Status: Acute Code(s): JSX7266 - SNOMED Code(s): 486637902 Comment: as per ortho Status and Disposition: discharge per ortho
== END 2018-02-06 13:30 | disposition home health service (06) | DRG 470 ==
LOC: AA 06:41 → SSU 10:25
PROVIDERS: ADMIT Orthopaedic Surgery Adult Reconstructive Orthopaedic Surgery; ATTEND Orthopaedic Surgery Adult Reconstructive Orthopaedic Surgery
PROC: 0SRB04A Replacement of Left Hip Joint with Ceramic on Polyethylene Synthetic Substitute, Uncemented, Open Approach (ICD-10-PCS; principal; 2018-02-05 08:30)
DX: M16.12 Unilateral primary osteoarthritis, left hip (principal); Z96.641 Presence of right artificial hip joint; Z96.652 Presence of left artificial knee joint; I10 Essential (primary) hypertension; K21.9 Gastro-esophageal reflux disease without esophagitis; E78.00 Pure hypercholesterolemia, unspecified; I73.00 Raynaud's syndrome without gangrene; Z90.79 Acquired absence of other genital organ(s); Z85.46 Personal history of malignant neoplasm of prostate; Z82.49 Family history of ischemic heart disease and other diseases of the circulatory system; Z82.61 Family history of arthritis; Z72.89 Other problems related to lifestyle; Z82.3 Family history of stroke; Z83.3 Family history of diabetes mellitus; Z87.891 Personal history of nicotine dependence; Z87.11 Personal history of peptic ulcer disease; Z79.01 Long term (current) use of anticoagulants; Z79.82 Long term (current) use of aspirin
CPT/HCPCS: 36415; 80048; 85014; 85018; 85049; 85610; 88304; 88311; A9270-GY; C1713; C1776; G8978-GP-CJ; G8979-GP-CI; G8980-GP-CI; G8987-GO-CI; G8988-GO-CI; G8989-GO-CI; J0330; J0690; J1100; J1650; J2250; J2704; J3010